=== PATIENT | female | born 1945 | race Caucasian/White ===

== ENCOUNTER → 2017-01-03 | Outpatient (CLI) | payer MEDICARE, BC ==
--- NOTE | 2017-01-03 13:41 | BD ---
EXAMINATION TYPE: MG DEXA axial skeleton. DATE OF EXAM: 01/03/2017 11:17 AM COMPARISON: DEXA bone scan report September 07, 2009. CLINICAL HISTORY: post menopausal Height: 5'4 Weight: 180 FRAX RISK QUESTIONS: Alcohol (3 or more units per day): no Family History (Parent hip fracture): no Glucocorticoids (More than 3mos): no (Ex: prednisone, prednisolone, methylprednisolone, dexamethasone, and hydrocortisone). History of Fracture in Adulthood: no Secondary Osteoporosis: 1. Type 1 Diabetes: no 2. Hyperthyroidism: no 3. Menopause before 45: yes 4. Malnutrition: no 5. Chronic liver disease: no Rheumatoid Arthritis: no Current Tobacco Use: no RISK FACTORS HISTORY OF: Active: Postmenopausal woman: If Premenopausal, do you have irregular periods: MEDICATIONS: Additional Medications: blood pressure, cholesterol, Additional History: breast cancer 2016, estrogen devaughn, type 2 diabetes EXAM MEASUREMENTS: Bone mineral densitometry was performed using the [employer] System. Bone mineral density as measured about the Lumbar spine is: ----- L1-L4(G/cm2): 1.398 T Score Values are as follows: ----- L2: 1.7 ----- L3: 2.7 ----- L4: 2.2 ----- L1-L4:1.8 Bone mineral density has: Increased 8.0% since study of: 09/07/2009 Bone mineral density about the R hip (g/cm2): 1.090 Bone mineral density about the L hip (g/cm2): 0.999 T Score values are as follows: -----R Neck: 0.4 -----L Neck: -0.3 -----R Total: 1.3 -----L Total: 1.2 Bone mineral density has: Increased 2.8% since study of: 09/07/2009 IMPRESSION: Normal (Values between +1 and -1 indicate normal bone mass). Consider repeating this study in 5 year s or sooner if there is some new clinical indication. NOTE: T-SCORE=SD OF THE YOUNG ADULT MEAN.
== END | disposition home or self-care (01) ==
LOC: RADBDWWP 10:54
PROVIDERS: ATTEND Internal Medicine Hematology & Oncology
DX: C50.412 Malignant neoplasm of upper-outer quadrant of left female breast (principal); N95.1 Menopausal and female climacteric states; Z79.890 Hormone replacement therapy
CPT/HCPCS: 77080

== ENCOUNTER → 2017-02-06 | Outpatient (CLI) | payer MEDICARE, BC ==
--- NOTE | 2017-02-06 14:20 | MM ---
Reason for exam: additional evaluation requested from prior study. Last mammogram was performed 10 months ago. History: Patient is postmenopausal and has history of breast cancer at age 70. Malignant MG stereo VAD BX RT of the right breast, May 10, 2016. Physical Findings: Nurse did not find any significant physical abnormalities on exam. MG 3D Diag Mammo W/Cad JORDON Bilateral CC and MLO view(s) were taken. Prior study comparison: April 18, 2016, right breast MG work up mamm w CAD RT. There are scattered fibroglandular densities. Finding: Architectural distortion in the upper outer quadrant of the right breast, consistent with known excisional biopsy. There is no discrete abnormality. These results were verbally communicated with the patient and result sheet given to the patient on 02/06/17. ASSESSMENT: Benign, BI-RAD 2 RECOMMENDATION: Follow-up diagnostic mammogram of both breasts in 1 year.
== END | disposition home or self-care (01) ==
LOC: RADMAMWWP 13:31
PROVIDERS: ATTEND Radiology Radiation Oncology
DX: D05.11 Intraductal carcinoma in situ of right breast (principal)
CPT/HCPCS: G0204; G0279

== ENCOUNTER → 2018-02-08 | Outpatient (CLI) | payer MEDICARE, BC ==
--- NOTE | 2018-02-08 12:25 | MM ---
Reason for exam: additional evaluation requested from prior study. Last mammogram was performed 1 year ago. History: Patient is postmenopausal and has history of breast cancer at age 70. Malignant MG stereo VAD BX RT of the right breast, May 10, 2016. Physical Findings: Nurse did not find any significant physical abnormalities on exam. MG 3D Diag Mammo W/Cad JORDON Bilateral CC and MLO view(s) were taken. Prior study comparison: February 06, 2017, bilateral MG 3d diag mammo w/cad JORDON. April 18, 2016, right breast MG work up mamm w CAD RT. The breast tissue is heterogeneously dense. This may lower the sensitivity of mammography. No suspicious calcifications are seen. Stable post operative changes in the right breast. No significant new findings when compared with previous films. These results were verbally communicated with the patient and result sheet given to the patient on 02/08/18. ASSESSMENT: Benign, BI-RAD 2 RECOMMENDATION: Follow-up diagnostic mammogram of both breasts in 1 year.
== END | disposition home or self-care (01) ==
LOC: RADMAMWWP 10:07
PROVIDERS: ATTEND Internal Medicine Hematology & Oncology
DX: Z08 Encounter for follow-up examination after completed treatment for malignant neoplasm (principal); Z85.3 Personal history of malignant neoplasm of breast
CPT/HCPCS: 77066; G0279; 77062

== ENCOUNTER 2018-08-06 11:49 | Emergency (ER) | payer MEDICARE, BC ==
[2018-08-06 12:02] VITALS: RESP 18; TEMP 98
[2018-08-06] MEDS ORDERED: LABETALOL SYRINGE 5 MG/ML IVP STA ×2 (12:06→14:34)
[2018-08-06] MEDS ORDERED: hydrALAZINE HCL 20 MG/ML 1 ML VIAL IVP STA (12:55)
[2018-08-06 13:03] LABS: Basophils % (A) 1 %; Eosinophils # (A) 0.1 k/uL (0-0.7); Eosinophils % (A) 2 %; Lymphocytes # (A) 1.3 k/uL (1.0-4.8); Lymphocytes % (A) 24 %; MCH 29.5 pg (25.0-35.0); MCHC 34.2 g/dL (31.0-37.0); MCV 86.5 fL (80.0-100.0); Monocytes # (A) 0.3 k/uL (0-1.0); Monocytes % (A) 6 %; Neutrophils # (A) 3.5 k/uL (1.3-7.7); Neutrophils % (A) 66 %; Platelet Count 124 k/uL (150-450); RDW 13.9 % (11.5-15.5); WBC 5.4 k/uL (3.8-10.6)
[2018-08-06 13:14] LABS: Magnesium 1.5 mg/dL (1.6-2.3); Potassium 4.3 mmol/L (3.5-5.1); Total Bilirubin 0.7 mg/dL (0.2-1.3); Total Protein 7.1 g/dL (6.3-8.2)
--- NOTE | 2018-08-06 13:23 | ED ---
Recheck HPI - General Chief Complaint: Recheck/Abnormal Lab/Rx Stated Complaint: hypertension Time Seen by Provider: 08/06/18 12:06 Source: patient, RN notes reviewed, old records reviewed Mode of arrival: ambulatory Limitations: no limitations - History of Present Illness Initial Comments: This is a 72-year-old female to the ER for evaluation presents today for evaluation of elevated blood pressure. Denies complaints no headache chest pain shortness breath or abdominal pain. Patient's blood pressures running high for weeks MD Complaint: other (Blood pressure rechecked) -: month(s) Returns Today for: Called Because of Abnormal Lab/Test Symptoms Since Prior Visit: no new symptoms Context: planned re-check Associated Symptoms: none - Related Data Home Medications Medication Instructions Recorded Confirmed Lovastatin [Mevacor] 20 mg PO HS 07/07/14 08/06/18 Metoprolol Tartrate [Lopressor] 150 mg PO BID 07/07/14 08/06/18 metFORMIN HCL [Glucophage Xr] 2,250 mg PO AC-SUPPER 07/07/14 08/06/18 Ibuprofen 800 mg PO TID 08/06/18 08/06/18 Letrozole [Femara] 2.5 mg PO DAILY 08/06/18 08/06/18 Lisinopril 40 mg PO DAILY 08/06/18 08/06/18 Previous Rx's Medication Instructions Recorded hydrALAZINE HCL [Apresoline] 10 mg PO QID #16 tablet 08/06/18 hydrALAZINE HCL [Apresoline] 25 mg PO QID #28 tab 08/06/18 Allergies Allergy/AdvReac Type Severity Reaction Status Date / Time No Known Allergies Allergy Verified 08/06/18 12:18 Review of Systems ROS Statement: Those systems with pertinent positive or pertinent negative responses have been documented in the HPI. ROS Other: All systems not noted in ROS Statement are negative. Past Medical History Past Medical History: Diabetes Mellitus, GERD/Reflux, Hyperlipidemia, Hypertension History of Any Multi-Drug Resistant Organisms: None Reported Past Surgical History: No Surgical Hx Reported Past Anesthesia/Blood Transfusion Reactions: No Reported Reaction Past Psychological History: No Psychological Hx Reported Smoking Status: Former smoker Past Alcohol Use History: None Reported Past Drug Use History: None Reported General Exam Limitations: no limitations General appearance: alert, in no apparent distress Head exam: Present: atraumatic, normocephalic, normal inspection Eye exam: Present: normal appearance, PERRL, EOMI. Absent: scleral icterus, conjunctival injection, periorbital swelling ENT exam: Present: normal exam, mucous membranes moist Neck exam: Present: normal inspection. Absent: tenderness, meningismus, lymphadenopathy Respiratory exam: Present: normal lung sounds bilaterally. Absent: respiratory distress, wheezes, rales, rhonchi, stridor Cardiovascular Exam: Present: regular rate, normal rhythm, normal heart sounds. Absent: systolic murmur, diastolic murmur, rubs, gallop, clicks GI/Abdominal exam: Present: soft, normal bowel sounds. Absent: distended, tenderness, guarding, rebound, rigid Extremities exam: Present: normal inspection, full ROM, normal capillary refill. Absent: tenderness, pedal edema, joint swelling, calf tenderness Back exam: Present: normal inspection Neurological exam: Present: alert, oriented X3, CN II-XII intact Psychiatric exam: Present: normal affect, normal mood Skin exam: Present: warm, dry, intact, normal color. Absent: rash Course Vital Signs 08/06/18 08/06/18 08/06/18 11:58 12:54 13:35 Temperature 98 F Pulse Rate 71 66 77 Respiratory 18 18 18 Rate Blood Pressure 216/102 219/112 207/107 O2 Sat by Pulse 97 100 Oximetry 08/06/18 08/06/18 08/06/18 14:37 15:12 15:49 Temperature 98 F Pulse Rate 74 80 80 Respiratory 18 18 18 Rate Blood Pressure 206/104 179/93 149/82 O2 Sat by Pulse 96 96 96 Oximetry Medical Decision Making - Medical Decision Making 72 female the ER for evaluation of elevated blood pressure blood pressure improved here in the ER, patient asymptomatic can be discharged home - Lab Data Result diagrams: 08/06/18 12:35 08/06/18 12:35 Lab Results 08/06/18 08/06/18 08/06/18 Range/Units 12:35 12:35 12:35 WBC 5.4 (3.8-10.6) k/uL RBC 4.40 (3.80-5.40) m/uL Hgb 13.0 (11.4-16.0) gm/dL Hct 38.0 (34.0-46.0) % MCV 86.5 (80.0-100.0) fL MCH 29.5 (25.0-35.0) pg MCHC 34.2 (31.0-37.0) g/dL RDW 13.9 (11.5-15.5) % Plt Count 124 L (150-450) k/uL Neutrophils % 66 % Lymphocytes % 24 % Monocytes % 6 % Eosinophils % 2 % Basophils % 1 % Neutrophils # 3.5 (1.3-7.7) k/uL Lymphocytes # 1.3 (1.0-4.8) k/uL Monocytes # 0.3 (0-1.0) k/uL Eosinophils # 0.1 (0-0.7) k/uL Basophils # 0.0 (0-0.2) k/uL Sodium 139 (137-145) mmol/L Potassium 4.3 (3.5-5.1) mmol/L Chloride 107 (98-107) mmol/L Carbon Dioxide 25 (22-30) mmol/L Anion Gap 7 mmol/L BUN 23 H (7-17) mg/dL Creatinine 1.04 (0.52-1.04) mg/dL Est GFR (CKD-EPI)AfAm 61 (>60 ml/min/1.73 sqM) Est GFR (CKD-EPI)NonAf 53 (>60 ml/min/1.73 sqM) Glucose 122 H (74-99) mg/dL Calcium 10.0 (8.4-10.2) mg/dL Phosphorus 4.0 (2.5-4.5) mg/dL Magnesium 1.5 L (1.6-2.3) mg/dL Total Bilirubin 0.7 (0.2-1.3) mg/dL AST 29 (14-36) U/L ALT 35 (9-52) U/L Alkaline Phosphatase 63 (38-126) U/L Total Creatine Kinase 74 (30-135) U/L CK-MB (CK-2) 1.9 (0.0-2.4) ng/mL CK-MB (CK-2) Rel Index 2.6 Troponin I <0.012 (0.000-0.034) ng/mL Total Protein 7.1 (6.3-8.2) g/dL Albumin 4.0 (3.5-5.0) g/dL - EKG Data -: EKG Interpreted by Me (EKG shows NSR rate of 67 [place] 160 QRS 78 QTc 407) Disposition Clinical Impression: Hypertension, uncontrolled Disposition: HOME SELF-CARE Condition: Good Instructions: Hypertensive Crisis (ED), Hypertension (ED) Prescriptions: hydrALAZINE HCL [Apresoline] 25 mg PO QID #28 tab hydrALAZINE HCL [Apresoline] 10 mg PO QID #16 tablet Is patient prescribed a controlled substance at d/c from ED?: No Referrals: Ebonie Alexander MD [Primary Care Provider] - 1-2 days
[2018-08-06 13:24] LABS: Creatine Kinase 74 U/L (30-135)
[2018-08-06 13:36] LABS: Creatine Kinase MB 1.9 ng/mL (0.0-2.4); Troponin I <0.012 ng/mL (0.000-0.034)
[2018-08-06 15:13] VITALS: PULSE 80
[2018-08-06 15:50] VITALS: BP 149/82
== END 2018-08-06 15:39 | disposition home or self-care (01) ==
LOC: EC 11:49
DX: I10 Essential (primary) hypertension (principal); E11.9 Type 2 diabetes mellitus without complications; E78.5 Hyperlipidemia, unspecified; Z87.891 Personal history of nicotine dependence; Z79.84 Long term (current) use of oral hypoglycemic drugs; Z79.1 Long term (current) use of non-steroidal anti-inflammatories (NSAID); Z79.811 Long term (current) use of aromatase inhibitors; Z79.899 Other long term (current) drug therapy
CPT/HCPCS: 36415; 93005; 80053; 82550; 82553; 83735; 84100; 84484; 85025; 99284; 96374; 96375; J0360

== ENCOUNTER → 2019-01-15 | Outpatient (CLI) | payer MEDICARE, BC ==
--- NOTE | 2019-01-15 15:34 | BD ---
EXAMINATION TYPE: Axial Bone Density DATE OF EXAM: 01/15/2019 COMPARISON: 2017 CLINICAL HISTORY: post menopausal Height: 5'4 1/2 Weight: 173 FRAX RISK QUESTIONS: Secondary Osteoporosis: 3. Menopause before 45: y RISK FACTORS HISTORY OF: Family History of Osteoporosis: y Postmenopausal woman: y MEDICATIONS: Additional Medications: high blood pressure, type 2 diabetes, pain Additional History: breast cancer, radiation EXAM MEASUREMENTS: Bone mineral densitometry was performed using the [employer] System. Bone mineral density as measured about the Lumbar spine is: ----- L1-L4(G/cm2): 1.367 T Score Values are as follows: ----- L2: 0.7 ----- L3: 2.1 ----- L4: 2.4 ----- L1-L4:1.6 Bone mineral density has: Decreased -3.7% since study of: 01/03/2017 Bone mineral density about the R hip (g/cm2): 0.988 Bone mineral density about the L hip (g/cm2): 0.975 T Score values are as follows: -----R Neck: -0.4 -----L Neck: -0.5 -----R Total: 0.3 -----L Total: 0.7 Bone mineral density has: Decreased -8.5% since study of: 01/03/2017 IMPRESSION: Normal (Values between +1 and -1 indicate normal bone mass). Consider repeating this study in 5 year s or sooner if there is some new clinical indication. NOTE: T-SCORE=SD OF THE YOUNG ADULT MEAN.
== END | disposition home or self-care (01) ==
LOC: RADBDWWP 14:43
PROVIDERS: ATTEND Internal Medicine Hematology & Oncology
DX: C50.411 Malignant neoplasm of upper-outer quadrant of right female breast (principal); N95.1 Menopausal and female climacteric states; Z79.890 Hormone replacement therapy
CPT/HCPCS: 77080

== ENCOUNTER → 2019-02-12 | Outpatient (CLI) | payer MEDICARE, BC ==
--- NOTE | 2019-02-12 14:04 | MM ---
Reason for exam: additional evaluation requested from prior study. Last mammogram was performed 1 year ago. History: Patient is postmenopausal and has history of breast cancer at age 70. Malignant MG stereo VAD BX RT of the right breast, May 10, 2016. Lumpectomy of the right breast. Radiation therapy of the right breast. Taking antineoplastic beginning at age 70. Physical Findings: Nurse did not find any significant physical abnormalities on exam. MG 3D Diag Mammo W/Cad JORDON Bilateral CC and MLO view(s) were taken. Prior study comparison: February 08, 2018, bilateral MG 3d diag mammo w/cad JORDON. February 06, 2017, bilateral MG 3d diag mammo w/cad JORDON. The breast tissue is heterogeneously dense. This may lower the sensitivity of mammography. Benign left upper outer quadrant skin lesions on physical exam (skin tags). Post therapy change on the right. These results were verbally communicated with the patient and result sheet given to the patient on 02/12/19. ASSESSMENT: Benign, BI-RAD 2 RECOMMENDATION: Follow-up diagnostic mammogram of both breasts in 1 year.
== END | disposition home or self-care (01) ==
LOC: RADMAMWWP 12:38
PROVIDERS: ATTEND Internal Medicine Hematology & Oncology
DX: Z08 Encounter for follow-up examination after completed treatment for malignant neoplasm (principal); Z85.3 Personal history of malignant neoplasm of breast
CPT/HCPCS: 77066; G0279; 77062

== ENCOUNTER → 2020-06-17 | Outpatient (CLI) | payer MEDICARE, BC ==
--- NOTE | 2020-06-17 15:01 | XR ---
EXAMINATION TYPE: XR chest 2V DATE OF EXAM: 06/17/2020 CLINICAL HISTORY: Preoperative back surgery. Z01.818. TECHNIQUE: Frontal and lateral views of the chest are obtained. COMPARISON: None FINDINGS: Surgical clips of the right breast. The cardiomediastinal silhouette is within normal limi ts for size. Pulmonary vasculature is normal. There is no focal air space opacity, pleural effusion, or pneumothorax seen. Degenerative changes of the spine. IMPRESSION: No acute cardiopulmonary process.
[2020-06-17 16:18] LABS: Appearance,Urine Clear (Clear); Bilirubin,Urine Negative (Negative); Blood,Urine Negative (Negative); Color,Urine Yellow; Glucose,Urine (UA) Negative (Negative); Ketones,Urine Negative (Negative); Leukocyte Esterase,Urine Small (Negative); Mucus,Urine Rare /hpf; Nitrite,Urine Negative (Negative); PH, Urine 5.5 (5.0-8.0); Protein,Urine Trace (Negative); RBC,Urine 1 /hpf (0-5); Specific Gravity,Urine 1.025 (1.001-1.035); Squamous Epithelial Cell,Urine <1 /hpf (0-4); Urobilinogen,Urine <2.0 mg/dL (<2.0); WBC,Urine <1 /hpf (0-5)
== END | disposition home or self-care (01) ==
LOC: LABPAT 14:26
PROVIDERS: ATTEND Orthopaedic Surgery Orthopaedic Surgery of the Spine
DX: Z01.818 Encounter for other preprocedural examination (principal); Z01.812 Encounter for preprocedural laboratory examination; M43.10 Spondylolisthesis, site unspecified
CPT/HCPCS: 36415; 71046; 81001; 87070; 93005

== ENCOUNTER → 2020-06-22 | Outpatient (CLI) | payer MEDICARE, BC ==
[2020-06-22 13:33] LABS: Basophils % (A) 1 %; Eosinophils # (A) 0.1 k/uL (0-0.7); Eosinophils % (A) 2 %; HCT 41.8 % (34.0-46.0); HGB 13.8 gm/dL (11.4-16.0); Lymphocytes # (A) 1.6 k/uL (1.0-4.8); Lymphocytes % (A) 24 %; MCH 30.2 pg (25.0-35.0); MCHC 33.2 g/dL (31.0-37.0); Mean Platelet Volume 8.7; Monocytes # (A) 0.5 k/uL (0-1.0); Monocytes % (A) 7 %; Neutrophils # (A) 4.4 k/uL (1.3-7.7); Neutrophils % (A) 65 %; Partial Thromboplastin Time 23.6 sec (22.0-30.0); Platelet Count 152 k/uL (150-450); Prothrombin Time 10.1 sec (9.0-12.0); RBC 4.59 m/uL (3.80-5.40); RDW 13.4 % (11.5-15.5); WBC 6.7 k/uL (3.8-10.6)
[2020-06-22 13:51] LABS: Calcium 10.6 mg/dL (8.4-10.2); Potassium 4.8 mmol/L (3.5-5.1)
== END | disposition home or self-care (01) ==
LOC: LABPAT 12:49
PROVIDERS: ATTEND Orthopaedic Surgery Orthopaedic Surgery of the Spine
DX: Z01.818 Encounter for other preprocedural examination (principal); M43.10 Spondylolisthesis, site unspecified; Z79.01 Long term (current) use of anticoagulants
CPT/HCPCS: 36415; 80048; 85025; 85610; 85730; 86850; 86900; 86901

== ENCOUNTER 2020-07-01 09:51 | Day surgery (SDC) | payer MEDICARE, BC ==
[2020-06-25 11:20] VITALS: BMI 27.8
[~2020-07-01 09:51] MED LIST: ceFAZolin 1,000 MG in SODIUM CHLORIDE 0.9% IRRIGATIO 1,000 ML IRRIGATION ONE; fentaNYL (PF) 50 MCG/ML 2 ML AMP IV PRN
[2020-07-01] MEDS ORDERED: ONDANSETRON 4 MG/2 ML VIAL ONE (10:35)
[2020-07-01 10:50] LABS: Glucose,Whole Blood 128 mg/dL (75-99)
[2020-07-01] MEDS: LACTATED RINGERS 1,000 ML IV SCH ×2 (10:50→22:17)
[2020-07-01] MEDS ORDERED: LIDOCAINE 1% (10MG/ML) FOR IV START INTRADERMA ONE (10:50)
[2020-07-01] MEDS: ONDANSETRON 4 MG/2 ML VIAL IVP PRN ×2 (10:51→15:27)
[2020-07-01] MEDS ORDERED: SUCCINYLCHOLINE CHLORIDE 100 MG/5 ML SYR IV ONE (11:32)
[2020-07-01] MEDS ORDERED: PROPOFOL 10 MG/ML 20 ML VIAL IV ONE (11:32)
[2020-07-01] MEDS ORDERED: ePHEDrine SULFATE/0.9% NACL/PF 50 MG/5 ML SYRINGE IV ONE (11:32)
[2020-07-01] MEDS ORDERED: HYDROmorphone (PF) 1 MG/ML ONE (11:32)
[2020-07-01] MEDS ORDERED: fentaNYL (PF) 50 MCG/ML 2 ML AMP ONE (11:32)
[2020-07-01] MEDS ORDERED: ROCURONIUM 10 MG/ML (10 ML VIAL) IV ONE (11:32)
[2020-07-01] MEDS ORDERED: LIDOCAINE 1% INJ 10MG/ML (20 ML MDV) ONE (11:32)
[2020-07-01] MEDS ORDERED: MIDAZOLAM 2 MG/2 ML VIAL ONE (11:32)
[2020-07-01] MEDS ORDERED: GLYCOPYRROLATE 0.2 MG/ML 2 ML VIAL ONE (11:32)
[2020-07-01] MEDS ORDERED: THROMBIN (BOVINE) 5,000 UNIT VIAL TOPICAL ONE (12:34)
[2020-07-01] MEDS ORDERED: BUPIVACAINE (PF) 0.25% 30 ML VIAL SQ ONE (12:34)
[2020-07-01] MEDS ORDERED: GELATIN SPONGE,ABSORB (LARGE) 1 EACH SPONGE TOPICAL ONE (12:34)
[2020-07-01] MEDS ORDERED: LIDOCAINE 1%-EPI 1:100,000 20 ML VIAL SQ ONE (12:35)
[2020-07-01] MEDS ORDERED: LACTATED RINGERS 1,000 ML IV ONE (12:59)
[2020-07-01] MEDS ORDERED: BENZOCAINE/MENTHOL LOZENG 1 EACH LOZENGE MUCOUS MEM PRN (14:23)
[2020-07-01] MEDS ORDERED: MAGNESIUM HYDROXIDE 2,400 MG/10 ML CUP PO PRN (14:23)
[2020-07-01] MEDS ORDERED: HYDROcodone/APAP 5-325MG 1 EACH TAB PO PRN (14:23)
[2020-07-01] MEDS ORDERED: ACETAMINOPHEN TAB 325 MG TAB PO PRN (14:25)
[2020-07-01] MEDS ORDERED: ONDANSETRON 4 MG/2 ML VIAL IVP PRN (14:26)
--- NOTE | 2020-07-01 14:32 | P.OP ---
Date of Procedure: 07/01/20 Preoperative Diagnosis: Spondylolisthesis L4 5, spinal stenosis L4 5, lower extremity radiculopathy, lower extremity weakness, neurogenic claudication, low back pain, degenerative disc disease Postoperative Diagnosis: Same Anesthesia: GETA Pathology: none sent Condition: stable Disposition: PACU Description of Procedure: DESCRIPTION OF PROCEDURE(S): BRIEF OPERATIVE NOTE Preoperative Diagnosis: Spondylolisthesis L4 5, spinal stenosis L4 5, lower extremity radiculopathy, lower extremity weakness, neurogenic claudication, low back pain, degenerative disc disease Postoperative Diagnosis: Same Procedure: Laminectomy and decompression L4 [address] navigation aided Minimally invasive Posterior lateral decompression and fusion L4 5 Minimally invasive Transforaminal lumbar interbody fusion for a 360 fusion L4 5 Discectomy for decompression L4 5 Placement of interbody graft L4 5 Use of computer navigation for fusion Local autogenous bone grafting Aspiration of bone marrow from the pedicle of L4 on the right Use of bone graft extenders Surgeon: Dr. Murrieta Gluing Machine Operator Automatic: Joaquín MOODY who is present throughout the entire the case persistence during positioning, dissection, exposure, visualization, and all crucial elements of the case as well as closure. Anesthesia: General anesthesia per Dr. Dr. Mccallum Estimated blood loss: Approximately 150 mL Complications: None apparent Components implanted: K2M minimally invasive [place] pedicle screw system withscrews measuring 6.5 mm in diameter to rods one [place] interbody cage with 10 mL of osteo amp bio4 bone graft substitute and 30 mL of the BX bone fibers to supplement the local autogenous bone graft and bone marrow aspirate Disposition: To recovery room in good stable condition. OPERATIVE INDICATIONS The patient has had severe issues at their lower extremity in her lower back over the past several years with significant worsening over the past several months. Over the past few months the patient had pain at her back and her rig ht lower extremity. She is having severe radicular symptoms at her right lower extremity with weakness. She is having significant pain in her back. She is unable to obtain any comfort. We did aggressive conservative treatment with medications therapy and interventional pain management however she was not having any relief. She also showed evidence of a listhesis with some dynamic instability. The patient has been through conservative treatment. We discussed various treatment options including surgery, and the patient wishes to proceed with surgery We discussed the risk, patient's alternatives and benefits of surgery including but not limited to, risk of bleeding risk of infection, risk of need for further surgery, risk of decreased, loss of motion, muscle function, malunion nonunion, hardware failure, nerve damage, paralysis, heart attack, blindness and . She understood issues with the current pandemic and the possibility of exposure. OPERATIVE SUMMARY After discussing all the risks, patient alternatives and benefits at length, the patient elected to proceed with surgical intervention, signed informed consent, and presented for their procedure. The patient was seen and examined in the preoperative holding area and the surgical site was marked. The patient was given antibiotics and brought to the operating room. The patient was sedated and intubated by anesthesia in standard fashion. The patient was positioned on to the operating room table in a prone position on the appropriate frame which was well-padded and well molded. We were careful to pad any bony prominences and pressure points. We were careful to maintain the patient's cervical spine and good neutral alignment and position throughout. The patient was prepped and draped in a normal standard fashion. An appropriate timeout and keystone protocol performed. We were able to proceed with the surgery. The local wound area was infiltrated with local anesthetic. Over the right iliac crest I was able to make small stab incisions and establish a guidepin screw fixation to the iliac crest 2. I was able place the computer referencing device over the guidepins to establish an appropriate reference point for the Ziem CT navigation. We then were able to place patient in an appropriate drape and do a navigation spin for visualization and 3-D reconstruction of the lumbar spine. I was able utilize C-arm guidance and navigation to establish appropriate position over the pedicles bilaterally at the appropriate levels . With the appropriate levels confirmed was able to make small stab incisions over the appropriate pedicle sites bilaterally. Utilizing the computer navigation device I was able to establish bony landmarks at the right iliac crest for a bony reference point for the navigation device. I was able to establish a Jamshidi needle over the lateral aspect of the pedicle and advanced the trocar into the pedicle being careful not to breech superiorly inferiorly medially or laterally using computer navigation device. Position was confirmed regularly with AP and lateral images on C-arm and with the computer navigation device at L4 and L5 bilaterally. I was able to establish the trocar into the pedicle appropriately into the posterior aspect of the vertebral body bilaterally at the appropriate levels. This was done at each of the pedicle positions and each of the vertebrae. At the L4 vertebrae I was able to take approximately 25 mL of bone aspiration for use later in the case to supplement the allograft and autograft bone. I was able place the guidewire into the trocar and into the vertebral body appropriately under C-arm guidance. Dissection was taken down over the wire to the appropriate starting position for the screw placed. The appropriate length screw was chosen, threaded over the guidewire and screwed appropriately into the pedicle and vertebral body under C- arm guidance in excellent alignment and position with good bony purchase. This is done at each of the screw sites at the appropriate levels at L4 and 5 bilaterally. With the screws intact I extended the incision to connect the screw hole sites on the most symptomatic side on the right. I dissected down to establish access over the pars and lamina to the base of the spinous process. I was able to expose the facet joint. The capsule the facet was taken down and showed some facet arthrosis at the joint. I was able to use a combination of curettes and Kerrison rongeurs and a high-speed drill to take down the facet joint and do a facetectomy. I was able get excellent foraminal decompression and central decompression with undermining across midline to perform a laminectomy centrally and contralaterally. As able get good central decompression. The ligamentum flavum was taken down to further decompress centrally and at bilateral neural foramen. I was able to expose the disc space and visualize the traversing nerve root. Note was made of some disc protrusion and disc herniation that was abutting the traversing nerve root at the level causing further compression of the nerve root. I was able to establish a annulotomy at the appropriate level protecting soft tissue and neural structures. Note was made of some disc desiccation at the disc. I performed a complete discectomy with accommodation of curettes and rasps and scrapers. I was able get good endplate preparation at the disc space. I sized for the appropriate size interbody spacer protecting the soft tissue and neural structures. The wound was copiously irrigated and suctioned dry. There is no evidence of any dural tear or leak. I was able to pack the disc space with local autogenous bone graft as well as a small amount of bone graft which was also placed into the interbody cage itself. Protecting the soft tissue structures and neural structures I was able place the interbody cage in good alignment and good position with good fit and fill at the interbody space. Position was confirmed with C-arm guidance. Good hemostasis maintained. There is no evidence of any dural tear or leak. The wound was irrigated and suctioned dry. With the hardware intact, intraoperative C-arm imaging was again taken which showed good alignment and position of the hardware at the appropriate levels. We were then able to measure, contour and place the rods and appropriate hardware bilaterally. I was able to place capcrews, tighten them down, and torque them with the torque screwdriver appropriately. With this intact I was able to place the local autogenous bone graft with additional bone graft enhancer as necessary into the posterior lateral gutters over the decorticated transverse processes and facet joints on the contralateral side. The remainder of the bone graft was placed over the facet joint on the contralateral side after taking down the facet joint capsule. With the bone graft intact, a stable construct, and good decompression at the appropriate levels, we were able to proceed with closure. Good hemostasis was maintained. There is no evidence of dural tear or leak. The fascia was closed for a watertight closure. he subcuticular tissue was closed with absorbable suture. The wound was cleaned and dried and dressed with the appropriate dressing. The drapes were broken down. The patient was gently rolled back onto their hospital bed being careful to maintain their cervical spine and good neutral alignment and position. They were woken up by anesthesia, extubated, and brought to the recovery room in good stable condition. The patient will be admitted to the hospital for appropriate postoperative care, medical management and monitoring. We will continue to follow them closely about the postoperative course.
[2020-07-01 14:34] LABS: Glucose,Whole Blood 155 mg/dL (75-99)
--- NOTE | 2020-07-01 14:47 | FL ---
Fluoroscopy INDICATION: Pain FINDINGS: Fluoroscopy time: 15 seconds. Images obtained: 2. IMPRESSIONS: 1. Documentation of fluoroscopy.
[2020-07-01] MEDS: HYDROmorphone 0.5 MG/0.5 ML SYRINGE IVP PRN ×3 (14:56→18:06)
[2020-07-01] MEDS: SODIUM CHLORIDE 0.9% 1,000 ML IV SCH (15:53)
[2020-07-01] MEDS: metFORMIN 500 MG TAB PO SCH (18:06)
[2020-07-01 19:39] LABS: Glucose,Whole Blood 162 mg/dL (75-99)
[2020-07-01] MEDS: INSULIN ASPART (NovoLOG) 100 UNIT/ML VIAL SQ SCH (20:04)
[2020-07-01] MEDS: traMADol 50 MG TAB PO PRN (21:38)
[2020-07-02] MEDS: HYDROmorphone 0.5 MG/0.5 ML SYRINGE IVP PRN ×2 (01:26→06:12)
[2020-07-02] MEDS: traMADol 50 MG TAB PO PRN ×2 (04:12→16:15)
[2020-07-02] MEDS: SODIUM CHLORIDE 0.9% 1,000 ML IV SCH ×2 (04:13→22:29)
[2020-07-02 06:38] LABS: Basophils % (A) 0 %; Eosinophils % (A) 1 %; HCT 36.7 % (34.0-46.0); HGB 12.2 gm/dL (11.4-16.0); Lymphocytes # (A) 0.8 k/uL (1.0-4.8); Lymphocytes % (A) 9 %; MCH 30.5 pg (25.0-35.0); MCHC 33.1 g/dL (31.0-37.0); Mean Platelet Volume 8.9; Monocytes # (A) 0.5 k/uL (0-1.0); Monocytes % (A) 6 %; Neutrophils % (A) 83 %; Platelet Count 107 k/uL (150-450); RBC 3.99 m/uL (3.80-5.40); RDW 13.4 % (11.5-15.5); WBC 8.4 k/uL (3.8-10.6)
[2020-07-02] MEDS ORDERED: CYCLOBENZAPRINE 10 MG TAB PO PRN (08:00)
[2020-07-02 08:07] LABS: Glucose,Whole Blood 126 mg/dL (75-99)
--- NOTE | 2020-07-02 08:07 | P.PN ---
Progress Note - Text Progress Note Date: 07/02/20 Postoperative day #1 Patient is seen and examined today at bedside. The patient has some pain around the surgical site as expected. Pain is being controlled with medication. Her Logan has been discontinued. She is eager to start moving around. She says she had very little if any sleep overnight last night and would like to try a muscle relaxer.She denies any headaches. Physical Exam Afebrile with stable vital signs Abdomen is soft nontender. Chest has good excursion deep and space expiration The incision site is clean dry and intact. No erythema there is no purulence. Extremities have not had neurologic change from prior to surgery. Her calves and thighs are soft and nontender. She has able to lift her legs up off the bed independently. Calves and thighs were soft nontender without evidence of DVT. Assessment/Plan Postoperative day #1 status post minimally invasive decompression fusion L4 5 for her spondylolisthesis with spinal stenosis and lower extremity radiculopathy Patient is progressing as expected from the surgery. She would like to try a muscle relaxer to help her sleep and I think that could be helpful for her. She is hopeful to go home tomorrow, but she will need to be able to improve her mobilization to be able to go home We will continue to increase the patient's mobilization with therapy. We will continue pain control with oral or IV medications. We'll continue to follow patient closely.
[2020-07-02] MEDS: INSULIN ASPART (NovoLOG) 100 UNIT/ML VIAL SQ SCH ×4 (08:12→21:05)
[2020-07-02] MEDS: BISOPROLOL-HCTZ 2.5-6.25 MG 1 EACH TAB PO SCH (08:40)
[2020-07-02] MEDS: lisinopriL 20 MG TAB PO SCH (08:40)
[2020-07-02] MEDS: metFORMIN 500 MG TAB PO SCH ×2 (08:40→18:27)
[2020-07-02] MEDS: DILTIAZEM CD 240 MG CAP.ER.24H PO SCH (08:40)
[2020-07-02] MEDS: SENNOSIDES-DOCUSATE SODIUM 1 EACH TAB PO SCH (08:43)
[2020-07-02] MEDS ORDERED: LETROZOLE 2.5 MG TAB PO SCH (09:00)
[2020-07-02 09:29] LABS: African American GFR (CKD) 63.4 (60.0-200.0); Anion Gap 9.8 mmol/L (4.00-12.00); Calcium 8.9 mg/dL (8.7-10.3); Carbon Dioxide 26.2 mmol/L (21.6-31.8); Non-African American GFR(CKD) 54.7 (60.0-200.0); Potassium 3.7 mmol/L (3.5-5.5)
[2020-07-02] MEDS: HYDROcodone/APAP 5-325MG 1 EACH TAB PO PRN (10:47)
[2020-07-02 14:35] LABS: Glucose,Whole Blood 176 mg/dL (75-99)
[2020-07-02 15:01] LABS: Hemoglobin A1C 5.6 % (4.0-6.0)
[2020-07-02 16:45] LABS: Glucose,Whole Blood 158 mg/dL (75-99)
--- NOTE | 2020-07-02 18:02 | P.CONS ---
History of Present Illness - Reason for Consult Consult date: 07/02/20 - History of Present Illness Nelda Reich, he is a 74-year-old female patient of Dr. Alexander, who was admitted to [facility] by Dr. Murrieta, and underwent L4-L5 laminectomy and decompression patient was admitted to the medical floor post surgery medical consultation was requested for management while hospitalized. Patient has a known history of hypertension, hyperlipidemia, axr-vzwbjqd-yrxpnsqxa diabetes mellitus, and history of breast cancer status post lumpectomy and radiation therapy 3 years ago. At this time patient is alert and oriented 3 in no apparent distress she is complaining of back pain otherwise she denies any complaints there is no fever or chills no headache or dizziness no chest pain no shortness of breath no cough no nausea or vomiting no abdominal pain no diarrhea no blood in the stools no burning with urination no frequency or urgency no hematuria. Past Medical History Past Medical History: Cancer, Diabetes Mellitus, Hyperlipidemia, Hypertension, Musculoskeletal Disorder, Osteoarthritis (OA) Additional Past Medical History / Comment(s): stage 0 breast cancer 4 yrs. ago- had radiation, N/T right leg History of Any Multi-Drug Resistant Organisms: None Reported Past Surgical History: Breast Surgery Additional Past Surgical History / Comment(s): colonoscopy, breast bx. Past Anesthesia/Blood Transfusion Reactions: No Reported Reaction Past Psychological History: No Psychological Hx Reported Smoking Status: Former smoker Past Alcohol Use History: None Reported Additional Past Alcohol Use History / Comment(s): quit smoking 25 yrs. ago, smoked from age of 11 to 48, 1ppd Past Drug Use History: None Reported - Past Family History Daughter(s) Family Medical History: Cancer Additional Family Medical History / Comment(s): colon Medications and Allergies Home Medications Medication Instructions Recorded Confirmed Type metFORMIN HCL [Glucophage Xr] 2,250 mg PO AC-SUPPER 07/07/14 07/01/20 History Ibuprofen 800 mg PO TID PRN 08/06/18 07/01/20 History Letrozole [Femara] 2.5 mg PO DAILY 08/06/18 07/01/20 History lisinopriL [Lisinopril] 40 mg PO DAILY 08/06/18 07/01/20 History Acetaminophen [Tylenol Arthritis] 650 mg PO Q8H PRN 06/25/20 07/01/20 History Bisoprolol-Hctz 2.5-6.25 mg [Ziac 1 tab PO DAILY 06/25/20 07/01/20 History 2.5-6.25 MG] Diltiazem HCl [Cartia Xt] 480 mg PO DAILY 06/25/20 07/01/20 History traMADol HCl [Ultram] 50 mg PO Q6HR PRN 06/25/20 07/01/20 History HYDROcodone/APAP 5-325MG [[place] 1 tab PO Q6HR PRN 3 Days #28 tab 07/02/20 Rx 5-325] Allergies Allergy/AdvReac Type Severity Reaction Status Date / Time No Known Allergies Allergy Verified 07/01/20 10:29 Physical Exam Vitals: Vital Signs Temp Pulse Resp BP Pulse Ox 07/02/20 15:00 98.8 F 61 122/68 93 L 07/02/20 07:40 55 L 16 07/02/20 07:00 98.5 F 55 L 16 125/61 91 L 07/02/20 04:12 16 07/02/20 01:00 98.3 F 79 16 169/76 95 07/02/20 00:05 16 07/01/20 20:04 16 07/01/20 19:00 97.9 F 71 18 163/73 92 L 07/01/20 17:42 148/80 Intake and Output 07/02/20 07/02/20 07/02/20 06:59 14:59 22:59 Output Total 1500 650 Balance -1500 -650 Output: Urine 1500 650 Other: Voiding Method Indwelling Catheter Bedside Commode In general patient is alert and oriented 3 in no apparent distress HEENT head normocephalic and atraumatic Neck is supple no JVD no goiter no lymphadenopathy Chest exam reveals a few scattered rhonchi no wheezing Cardiac exam reveals regular heart sounds no gallops no murmurs Abdomen is soft nontender no organomegaly was normal bowel sounds Extremity exam reveals no edema no cyanosis or clubbing Neurological examination reveals no gross focal deficit Results CBC & Chem 7: 07/02/20 06:17 07/02/20 06:17 Labs: Abnormal Lab Results - Last 24 Hours (Table) 07/01/20 07/02/20 07/02/20 Range/Units 19:37 06:17 06:17 Plt Count 107 L (150-450) k/uL Lymphocytes # 0.8 L (1.0-4.8) k/uL Est GFR (CKD-EPI)NonAf 54.7 L (60.0-200.0) Glucose 124 H (70-110) mg/dL POC Glucose (mg/dL) 162 H (75-99) mg/dL 07/02/20 07/02/20 07/02/20 Range/Units 08:06 14:32 16:44 Plt Count (150-450) k/uL Lymphocytes # (1.0-4.8) k/uL Est GFR (CKD-EPI)NonAf (60.0-200.0) Glucose (70-110) mg/dL POC Glucose (mg/dL) 126 H 176 H 158 H (75-99) mg/dL Assessment and Plan Plan: 1. Status post L4-5 laminectomy with decompression 2. Underlying history of hypertension 3. Underlying history of hyperlipidemia 4. Underlying history of peb-akioyxe-wovwqiqcj diabetes mellitus 5. History of breast cancer status post lumpectomy and radiation therapy 3 years ago For DVT prophylaxis SCD stockings For GI prophylaxis proton X Will follow during this admission
[2020-07-02] MEDS: PANTOPRAZOLE 40 MG TABLET PO SCH (18:27)
[2020-07-02] MEDS: HYDROmorphone 1 MG/ML 1 ML SYRINGE IVP PRN ×2 (19:32→23:29)
[2020-07-02 20:17] LABS: Glucose,Whole Blood 129 mg/dL (75-99)
[2020-07-02] MEDS: LACTATED RINGERS 1,000 ML IV SCH (22:30)
[2020-07-03 02:05] VITALS: RESP 16
[2020-07-03] MEDS: HYDROcodone/APAP 5-325MG 1 EACH TAB PO PRN ×2 (05:08→10:11)
[2020-07-03 06:53] LABS: Glucose,Whole Blood 132 mg/dL (75-99)
[2020-07-03] MEDS: PANTOPRAZOLE 40 MG TABLET PO SCH (07:57)
[2020-07-03] MEDS: INSULIN ASPART (NovoLOG) 100 UNIT/ML VIAL SQ SCH (08:01)
[2020-07-03] MEDS: metFORMIN 500 MG TAB PO SCH (08:01)
[2020-07-03 08:24] VITALS: BP 135/67; PULSE 88; TEMP 97.2
--- NOTE | 2020-07-03 08:55 | P.DS ---
Providers Date of admission: 07/01/2020 Expected date of discharge: 07/03/20 Attending physician: Clemente Murrieta Consults: 07/01/20 14:23 Consult Physician Routine Consulting Provider: Calvin Lang Consult Reason/Comments: Medical management Do you want consulting provider notified?: Yes Primary care physician: Ebonie Alexander - Discharge Diagnosis(es) (1) Spondylolisthesis at L4-L5 level Current Visit: Yes Status: Acute (2) Spinal stenosis, lumbar region with neurogenic claudication Current Visit: Yes Status: Acute (3) Low back pain Current Visit: Yes Status: Acute (4) Radiculopathy with lower extremity symptoms Current Visit: Yes Status: Acute (5) Lumbar facet arthropathy Current Visit: Yes Status: Acute (6) Hypertension Current Visit: Yes Status: Acute (7) Diabetes mellitus Current Visit: Yes Status: Acute (8) Status post lumbar spinal fusion Current Visit: Yes Status: Acute Hospital Course: This is a pleasant 74-year-old female who presented with L4-5 spondylolisthesis, degenerative disc disease, and spinal canal stenosis with neurogenic claudication, low back pain with lower extremity radiculopathy and lower extremity weakness who failed outpatient conservative therapy. She was admitted for an L4-5 minimally invasive posterior lateral decompression and fusion with transforaminal lumbar interbody fusion. The patient tolerated the procedure well and did well postoperatively. She feels she has made significant improvement over the past 2 days. She has been able to ambulate to the restroom. She is voiding without difficulty. She has been able to pass gas but has not had a bowel movement. She is not experiencing any abdominal pain. She's not currently complaining of any lower extremity weakness or radiculopathy bilaterally. Her low back pain has been adequately controlled with oral [place] and muscle relaxer. She feels she is ready for discharge today. Condition on day of discharge stable. Patient will be discharged home. Patient was cleared preoperatively for surgery by Dr. Lang. Patient currently denies any nausea, vomiting, fever, or chills. Patient is eating and voiding freely without difficulty. Patient may shower Optifoam dressing intact. Patient may remove Optifoam dressing in 3 days and shower without a dressing at that time. Patient should refrain from driving until at least after their first follow-up appointment in the office. Patient should avoid excessive bending, lifting, and twisting; no lifting greater than 10 pounds. Patient has a walker at home she may use to aid in ambulation as needed. He prescription is written and provided to case management to obtain a shower bench and an above toilet seat riser which she may use as needed. Patient may resume other previously prescribed home medications while discontinuing previously prescribed Ultram. She should avoid anti-inflammatory medications over the next 6 weeks postoperatively. Patient's other medical diagnoses include hypertension and diabetes mellitus. MAPS has been reviewed. An "Opiod Start Talking" Form has been signed and placed in the patient's chart. A prescription has been written for [place] 5 mg she 25 mg 1 tab every 6 hours as needed for pain, dispensed #28. She is also given a prescription for baclofen 10 mg 1 tablet 3 times a day as needed for muscle spasm, dispensed #60. Physical Exam on day of discharge: Patient is awake, alert, and oriented 3 Vital signs stable Good chest excursion with deep inspiration and expiration Abdomen soft nontender No signs or symptoms of DVT; no calf pain Extensor hallucis longus, plantarflexion, and dorsiflexion positive sustained bilateral lower extremities She is able to move legs and apparently embedded without difficulty Dressings are dry and intact small area of dried blood over the left incision site; no erythema, purulence, or signs of infection Optiofoam dressing intact Procedures: L4-5 minimally invasive posterior lateral decompression and fusion with transforaminal lumbar interbody fusion Patient Condition at Discharge: Stable Plan - Discharge Summary Discharge Rx Participant: No New Discharge Prescriptions: New HYDROcodone/APAP 5-325MG [[place] 5-325] 1 tab PO Q6HR PRN 3 Days #28 tab PRN Reason: Pain Baclofen 10 mg PO TID PRN #60 tab PRN Reason: Spasms No Action metFORMIN HCL [Glucophage Xr] 2,250 mg PO AC-SUPPER lisinopriL [Lisinopril] 40 mg PO DAILY Letrozole [Femara] 2.5 mg PO DAILY Ibuprofen 800 mg PO TID PRN PRN Reason: Pain Diltiazem HCl [Cartia Xt] 480 mg PO DAILY Bisoprolol-Hctz 2.5-6.25 mg [Ziac 2.5-6.25 MG] 1 tab PO DAILY traMADol HCl [Ultram] 50 mg PO Q6HR PRN PRN Reason: Pain Acetaminophen [Tylenol Arthritis] 650 mg PO Q8H PRN PRN Reason: Pain Discharge Medication List metFORMIN HCL [Glucophage Xr] 2,250 mg PO AC-SUPPER 07/07/14 [History] Ibuprofen 800 mg PO TID PRN 08/06/18 [History] Letrozole [Femara] 2.5 mg PO DAILY 08/06/18 [History] lisinopriL [Lisinopril] 40 mg PO DAILY 08/06/18 [History] Acetaminophen [Tylenol Arthritis] 650 mg PO Q8H PRN 06/25/20 [History] Bisoprolol-Hctz 2.5-6.25 mg [Ziac 2.5-6.25 MG] 1 tab PO DAILY 06/25/20 [History] Diltiazem HCl [Cartia Xt] 480 mg PO DAILY 06/25/20 [History] traMADol HCl [Ultram] 50 mg PO Q6HR PRN 06/25/20 [History] HYDROcodone/APAP 5-325MG [[place] 5-325] 1 tab PO Q6HR PRN 3 Days #28 tab 07/02/20 [Rx] Baclofen 10 mg PO TID PRN #60 tab 07/03/20 [Rx] Follow up Appointment(s)/Referral(s): Clemente Murrieta DO [Doctor of Osteopathic Medicine] - 2 Weeks (Patient may follow-up with Joaquín Dumont PA-C or Dr. Branden Murrieta at [facility] in 2-3 weeks following discharge. ) Activity/Diet/Wound Care/Special Instructions: Keep site clean. May shower with waterproof Optifoam intact. Do not soak in a tub. After 72 hours postoperatively, patient may remove dressing and then may shower with area uncovered. May ambulate as tolerated. Avoid heavy or rigorous activity. Take medications as prescribed. No repetitive bending twisting or lifting. No overhead work. Discharge Disposition: HOME SELF-CARE
[2020-07-03] MEDS: lisinopriL 20 MG TAB PO SCH (10:10)
[2020-07-03] MEDS: DILTIAZEM CD 240 MG CAP.ER.24H PO SCH (10:10)
[2020-07-03] MEDS: SENNOSIDES-DOCUSATE SODIUM 1 EACH TAB PO SCH (10:11)
[2020-07-03] MEDS: BISOPROLOL-HCTZ 2.5-6.25 MG 1 EACH TAB PO SCH (10:16)
--- NOTE | 2020-07-03 10:46 | P.PN ---
Subjective Progress Note Date: 07/03/20 Nelda Reich, he is a 74-year-old female patient of Dr. Alexander, who was admitted to [facility] by Dr. Murrieta, and underwent L4-L5 laminectomy and decompression patient was admitted to the medical floor post surgery medical consultation was requested for management while hospitalized. Patient has a known history of hypertension, hyperlipidemia, jex-mlrecpz-wiqceziyk diabetes mellitus, and history of breast cancer status post lumpectomy and radiation therapy 3 years ago. At this time patient is alert and oriented 3 in no apparent distress she is complaining of back pain otherwise she denies any complaints there is no fever or chills no headache or dizziness no chest pain no shortness of breath no cough no nausea or vomiting no abdominal pain no diarrhea no blood in the stools no burning with urination no frequency or urgency no hematuria. On 07/03/2020 patient's alert and oriented 3. Patient is going to be discharged home per surgical services. Patient has been up ambulating. Patient did have temp of 99.1 at 1 AM Will order UA to rule out infection prior to discharge. Patient denies cough or shortness of breath. Patient denies any burning with urination patient denies nausea vomiting or diarrhea. Incentive spirometer encouraged. Patient has currently remained afebrile Objective - Vital Signs Vital signs: Vital Signs Temp 97.2 F L 07/03/20 08:23 Pulse 88 07/03/20 08:23 Resp 16 07/03/20 08:23 BP 135/67 07/03/20 08:23 Pulse Ox 98 07/03/20 08:23 Intake & Output 07/02/20 07/03/20 07/03/20 18:59 06:59 18:59 Intake Total 1000 Output Total 975 Balance 25 Intake: Intake, IV Titration 600 Amount Sodium Chloride 0.9% 1, 600 000 ml @ 75 mls/hr IV . [id number] [facility] Rx#:[id number] Oral 400 Output: Urine 975 Other: Voiding Method Bedside Commode Toilet Bedside Commode # Voids 3 - Exam In general patient is alert and oriented 3 in no apparent distress HEENT head normocephalic and atraumatic Neck is supple no JVD no goiter no lymphadenopathy Chest exam reveals a few scattered rhonchi no wheezing Cardiac exam reveals regular heart sounds no gallops no murmurs Abdomen is soft nontender no organomegaly was normal bowel sounds Extremity exam reveals no edema no cyanosis or clubbing Neurological examination reveals no gross focal deficit - Labs CBC & Chem 7: 07/02/20 06:17 07/02/20 06:17 Labs: Abnormal Lab Results - Last 24 Hours (Table) 07/02/20 07/02/20 07/02/20 Range/Units 14:32 16:44 20:16 POC Glucose (mg/dL) 176 H 158 H 129 H (75-99) mg/dL 07/03/20 Range/Units 06:52 POC Glucose (mg/dL) 132 H (75-99) mg/dL Assessment and Plan Plan: 1. Status post L4-5 laminectomy with decompression 2. Underlying history of hypertension 3. Underlying history of hyperlipidemia 4. Underlying history of jyd-srnurbg-pibesecch diabetes mellitus 5. History of breast cancer status post lumpectomy and radiation therapy 3 years ago 6. Low-grade temp 99.9. Will order UA to rule out infection. Patient denies any acute complaints. Incentive spirometer encouraged Patient to be discharged home today per surgical services For DVT prophylaxis SCD stockings For GI prophylaxis proton X Will follow during this admission
[2020-07-03 10:49] LABS: Appearance,Urine Clear (Clear); Bilirubin,Urine Negative (Negative); Blood,Urine Negative (Negative); Color,Urine Light Yellow; Glucose,Urine (UA) Negative (Negative); Ketones,Urine Negative (Negative); Leukocyte Esterase,Urine Moderate (Negative); Mucus,Urine Rare /hpf; Nitrite,Urine Negative (Negative); Protein,Urine Negative (Negative); RBC,Urine 4 /hpf (0-5); Specific Gravity,Urine 1.008 (1.001-1.035); Squamous Epithelial Cell,Urine <1 /hpf (0-4); Urobilinogen,Urine <2.0 mg/dL (<2.0); WBC,Urine 3 /hpf (0-5)
== END 2020-07-03 11:48 | disposition home or self-care (01) ==
LOC: OR 09:51 → 4SSUR 14:14 → OR 07-03 11:48
PROVIDERS: ATTEND Orthopaedic Surgery Orthopaedic Surgery of the Spine
DX: M51.16 Intervertebral disc disorders with radiculopathy, lumbar region (principal); M43.16 Spondylolisthesis, lumbar region; M48.062 Spinal stenosis, lumbar region with neurogenic claudication; I10 Essential (primary) hypertension; E78.5 Hyperlipidemia, unspecified; E11.9 Type 2 diabetes mellitus without complications; M19.90 Unspecified osteoarthritis, unspecified site; M16.11 Unilateral primary osteoarthritis, right hip; E66.3 Overweight; Z68.27 Body mass index [BMI] 27.0-27.9, adult; M47.26 Other spondylosis with radiculopathy, lumbar region; F40.240 Claustrophobia; Z85.3 Personal history of malignant neoplasm of breast; Z92.3 Personal history of irradiation; Z79.811 Long term (current) use of aromatase inhibitors; Z79.84 Long term (current) use of oral hypoglycemic drugs; Z79.899 Other long term (current) drug therapy; Z79.1 Long term (current) use of non-steroidal anti-inflammatories (NSAID); Z97.3 Presence of spectacles and contact lenses; Z88.8 Allergy status to other drugs, medicaments and biological substances; Z90.710 Acquired absence of both cervix and uterus; Z87.891 Personal history of nicotine dependence; Z98.890 Other specified postprocedural states; Z80.0 Family history of malignant neoplasm of digestive organs
CPT/HCPCS: 97116; 97161; 80048; 85025; 81001; 83036; 72100; 22633; 22853; 20939; 20930; 20936; C1713; J2250; J0690 ×3; J2405; J2001; J3010; J1170 ×4; J0330; J2704; 86850; 86900; 86901

== ENCOUNTER → 2021-03-17 | Outpatient (CLI) | payer MEDICARE, BC ==
--- NOTE | 2021-03-17 12:37 | MM ---
Reason for exam: additional evaluation requested from prior study. Last mammogram was performed 2 years and 1 month ago. History: Patient is postmenopausal and has history of breast cancer at age 70. Malignant MG stereo VAD BX RT of the right breast, May 10, 2016. Lumpectomy of the right breast. Radiation therapy of the right breast. Taking antineoplastic beginning at age 70. Physical Findings: Nurse did not find any significant physical abnormalities on exam. MG 3D Diag Mammo W/Cad JORDON Bilateral CC and MLO view(s) were taken. Prior study comparison: February 12, 2019, bilateral MG 3d diag mammo w/cad JORDON. February 08, 2018, bilateral MG 3d diag mammo w/cad JORDON. There are scattered fibroglandular densities. Right post operative changes. These results were verbally communicated with the patient and result sheet given to the patient on 03/17/21. ASSESSMENT: Benign, BI-RAD 2 RECOMMENDATION: Follow-up diagnostic mammogram of both breasts in 1 year. Manage on a clinical basis with regard to right pain, if focal, ultrasound recommended.
--- NOTE | 2021-03-18 07:31 | BD ---
EXAMINATION TYPE: Axial Bone Density DATE OF EXAM: 03/17/2021 COMPARISON: 01/15/2019 CLINICAL HISTORY: Height: 63.5 IN Weight: 166 LBS FRAX RISK QUESTIONS: Secondary Osteoporosis: 3. Menopause before 45: PARTIAL HYST AGE 29 RISK FACTORS HISTORY OF: Surgery to Spine: YES L SPINE 2019 Active: MODERATE Postmenopausal woman: PARTIAL HYST AGE 29 MEDICATIONS: Additional Medications: CALCIUM, VIT D, VIT C, VIT B, METFORMIN, HIGH BLOOD PRESSURE MEDS, FEMARA Additional History: BREAST CANCER WITH RADIATION EXAM MEASUREMENTS: Bone mineral densitometry was performed using the Angle System. L SPINE SURGERY 06/2020 Bone mineral density about the R hip (g/cm2): 0.984 Bone mineral density about the L hip (g/cm2): 0.945 T Score values are as follows: -----R Neck: -0.4 -----L Neck: -0.7 -----R Total: -0.5 -----L Total: 0.2 Bone mineral density has: Decreased -7.6% since study of: 01/15/2019 Bone mineral density about the L Wrist (g/cm2): 0.557 T Score values are as follows: -----Dist. R+U: -2.5 -----Prox. R+U: -0.7 -----Radius total: -1.9 Bone mineral density BASELINE IMPRESSION: Osteopenia. NOTE: T-SCORE=SD OF THE YOUNG ADULT MEAN.
== END | disposition home or self-care (01) ==
LOC: RADBDWWP 09:36
PROVIDERS: ATTEND Internal Medicine Hematology & Oncology
DX: M85.89 Other specified disorders of bone density and structure, multiple sites (principal); R92.8 Other abnormal and inconclusive findings on diagnostic imaging of breast; Z78.0 Asymptomatic menopausal state; Z85.3 Personal history of malignant neoplasm of breast
CPT/HCPCS: 77080; 77066; G0279; 77062

== ENCOUNTER 2021-05-07 18:00 | Emergency (ER) | payer OTHER, MEDICARE, BC ==
[2021-05-07 19:25] VITALS: RESP 18; TEMP 98.3
--- NOTE | 2021-05-07 21:44 | XR ---
EXAMINATION TYPE: XR lumbar spine 2 or 3V DATE OF EXAM: 05/07/2021 COMPARISON: NONE HISTORY: Back pain TECHNIQUE: 3 views FINDINGS: Lumbar vertebra have normal alignment. There is posterior fusion surgery at L4-5. There is disc prosthesis at L4-5. There is mild narrowing of L4-5 disc space. Abdominal aorta is atheromatous. I see no compression fracture. There is spurring of the endplates. Sacroiliac joints are intact. IMPRESSION: Previous surgery. No fracture seen.
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
[2021-05-07 23:05] VITALS: BP 184/101; PULSE 86
== END 2021-05-07 22:26 | disposition home or self-care (01) ==
LOC: EC 18:00
DX: M54.5 Low back pain (principal); E11.9 Type 2 diabetes mellitus without complications; I10 Essential (primary) hypertension; E78.5 Hyperlipidemia, unspecified; K21.9 Gastro-esophageal reflux disease without esophagitis; Z79.84 Long term (current) use of oral hypoglycemic drugs; Z79.1 Long term (current) use of non-steroidal anti-inflammatories (NSAID); Z79.899 Other long term (current) drug therapy; V43.62XA Car passenger injured in collision with other type car in traffic accident, initial encounter; Y92.481 Parking lot as the place of occurrence of the external cause
CPT/HCPCS: 72100; 99284

== ENCOUNTER → 2022-04-22 | Outpatient (CLI) | payer MEDICARE, BC ==
[2022-04-22 15:28] LABS: INR 0.9 (<1.2); Partial Thromboplastin Time 26.9 sec (22.0-30.0); Prothrombin Time 10.1 sec (9.0-12.0)
[2022-04-22 18:40] LABS: HCT 35.8 % (37.2-46.3); HGB 12.3 g/dL (12.0-15.0); MCHC 34.4 g/dL (32.0-37.0); MCV 87.3 fL (80.0-97.0); NRBC Per 100 WBC 0 /100 WBCS (0.0-0.0); Platelet Count 98 X 10*3/uL (140-440); RDW 13.2 % (11.5-14.5); WBC 3.91 X 10*3/uL (4.50-10.00)
[2022-04-22 19:47] LABS: African American GFR (CKD) 54.5 (60.0-200.0); Albumin 4.1 g/dL (3.8-4.9); Albumin/Globulin Ratio 1.68 (1.60-3.17); Anion Gap 11.1 mmol/L (10.00-18.00); BUN/Creat Ratio 19.11 Ratio (12.00-20.00); Blood Urea Nitrogen 21.4 mg/dL (9.0-27.0); Calcium 9.3 mg/dL (8.7-10.3); Carbon Dioxide 26.3 mmol/L (20.0-27.5); Globulin 2.5 g/dL (1.6-3.3); Potassium 4.4 mmol/L (3.5-5.5); Total Bilirubin 0.6 mg/dL (0.30-1.20); Total Protein 6.6 g/dL (6.2-8.2)
== END | disposition home or self-care (01) ==
LOC: LABPAT 14:04
PROVIDERS: ATTEND Orthopaedic Surgery
DX: Z01.812 Encounter for preprocedural laboratory examination (principal)
CPT/HCPCS: 80053; 85027; 85610; 85730; 87070; 93005

== ENCOUNTER 2022-04-23 18:05 | Emergency (ER) | payer MEDICARE, BC ==
[2022-04-23 18:11] VITALS: TEMP 98.2
[2022-04-23] MEDS ORDERED: SODIUM CHLORIDE 0.9% 1,000 ML IV STA (19:22)
--- NOTE | 2022-04-23 19:32 | ED ---
General Adult HPI - General Chief complaint: Urogenital Stated complaint: Blood in urine Time Seen by Provider: 04/23/22 19:10 Source: patient, RN notes reviewed, old records reviewed Mode of arrival: ambulatory Limitations: no limitations - History of Present Illness Initial comments: Patient is a 76-year-old female with past medical history remarkable for hypertension, type 2 diabetes who presents emergency Department complaining of fatigue for 1 week, as well as lack of appetite and decreased oral intake. Denies any nausea, vomiting, diarrhea. Denies any chest pain, shortness of breath. Does endorse a small nonproductive cough. Denies sore throat. Denies rhinorrhea. Does endorse darker urine over the last day or so. Denies any abdominal pain at all. Denies back pain. Does have right hip pain but is due for right hip replacement this week. Denies any fevers. No sick contacts. Was not vaccinated for Covid or flu. Presents for further evaluation at this time. Denies any lightheadedness, dizziness. Denies any blurry vision. Endorses primarily generalized fatigue.Symptoms have been ongoing for 7 days. - Related Data Home Medications Medication Instructions Recorded Confirmed metFORMIN HCL [Glucophage Xr] 2,250 mg PO AC-SUPPER 07/07/14 07/01/20 Ibuprofen 800 mg PO TID PRN 08/06/18 07/01/20 Letrozole [Femara] 2.5 mg PO DAILY 08/06/18 07/01/20 lisinopriL 40 mg PO DAILY 08/06/18 07/01/20 Acetaminophen [Tylenol Arthritis] 650 mg PO Q8H PRN 06/25/20 07/01/20 Bisoprolol-Hctz 2.5-6.25 mg [Ziac 1 tab PO DAILY 06/25/20 07/01/20 2.5-6.25 MG] dilTIAZem HCL [Cartia Xt] 480 mg PO DAILY 06/25/20 07/01/20 traMADol HCl [Ultram] 50 mg PO Q6HR PRN 06/25/20 07/01/20 Previous Rx's Medication Instructions Recorded HYDROcodone/APAP 5-325MG [[place] 1 tab PO Q6HR PRN 3 Days #28 tab 07/02/20 5-325] Baclofen 10 mg PO TID PRN #60 tab 07/03/20 cefUROXime axetiL [Ceftin] 500 mg PO BID 7 Days #14 tab 07/03/20 Allergies Allergy/AdvReac Type Severity Reaction Status Date / Time No Known Allergies Allergy Verified 04/23/22 18:11 Review of Systems ROS Statement: Those systems with pertinent positive or pertinent negative responses have been documented in the HPI. Review of Systems: CONST: Denies fever EYES: Denies blurry vision ENT: Denies nasal congestion C/V: Denies Chest pain RESP: Denies shortness of breath GI: Denies abdominal pain : Endorses hematuria concern SKIN: Denies rash. MSK: Denies joint pain. NEURO: Denies headache ROS Other: All systems not noted in ROS Statement are negative. Past Medical History Past Medical History: Diabetes Mellitus, GERD/Reflux, Hyperlipidemia, Hypertension History of Any Multi-Drug Resistant Organisms: None Reported Past Surgical History: No Surgical Hx Reported Additional Past Surgical History / Comment(s): back surgery jun 23 Past Anesthesia/Blood Transfusion Reactions: No Reported Reaction Past Psychological History: No Psychological Hx Reported Smoking Status: Never smoker Past Alcohol Use History: None Reported Past Drug Use History: None Reported General Exam - General Exam Comments Initial Comments: General: Appears in no acute distress. HEAD: Normal with no signs of head trauma. EYES: PERRLA, EOMI, conjunctiva normal, no discharge. ENT: Hearing grossly intact, normal oropharynx. Dry mucous membranes. RESPIRATORY: Clear breath sounds bilaterally. No wheezes, rales, or rhonchi. C/V: Tachycardic in triage which is resolved in the room.. S1 and S2 auscultated, no edema, peripheral pulses 2+ and intact throughout ABD: Abd is soft, nontender, nondistended EXT: Normal range of motion, no obvious deformity SKIN: No rashes or lesions observed on exposed skin. NEURO: Alert and oriented 4. No focal sensory strength deficits. Limitations: no limitations Course Vital Signs 04/23/22 04/23/22 18:09 19:48 Temperature 98.2 F Pulse Rate 112 H 97 Respiratory 20 16 Rate Blood Pressure 151/76 169/86 O2 Sat by Pulse 99 95 Oximetry Medical Decision Making - Medical Decision Making Based on the patient's presentation and physical exam, she presents for fatigue as well as dark urine. Primary concern is possible infectious etiology. We'll obtain abdominal laboratory studies, urine studies. Screening EKG and chest x- ray will also be obtained. Viral swabs also be obtained. She was in agreement this plan. Will be given IV fluids.Vital signs are within normal limits. EKG shows no signs of acute ischemia. Chest x-ray shows no acute cardiopulmonary process. Laboratory studies are remarkable for a leukopenia of 3.5. Urinalysis shows trace ketones but no blood. Covid is positive. Flu is negative. On reevaluation after the patient. I explained to her that she is outside of the window for Paxil the treatment. We do not have monoclonal antibodies to provide her. Vital signs are within normal limits. She is not hypoxic. No respiratory distress per chest x-ray unremarkable. I discussed with her hydration. Discussed obtaining pulse oximetry to monitor her oxygen levels. Patient will remain quarantine until today symptom-free. She lives with her who will also follow quarantine. There were no agreement this plan. I answered all questions that she had. I instructed the patient to follow up with their PCP in the next 1-3 days. I explained that the patient should return to the emergency department if they experience any worsening symptoms. Strict return precautions were discussed with the patient. The patient expressed understanding of these instructions. I answered all questions that the patient had. The patient was discharged home in good condition with their prescriptions and follow up information. - Lab Data Result diagrams: 04/23/22 19:47 04/23/22 19:47 Lab Results 04/23/22 04/23/22 04/23/22 Range/Units 19:47 19:47 19:47 WBC 3.5 L (3.8-10.6) k/uL RBC 4.23 (3.80-5.40) m/uL Hgb 13.3 (11.4-16.0) gm/dL Hct 37.2 (34.0-46.0) % MCV 88.0 (80.0-100.0) fL MCH 31.4 (25.0-35.0) pg MCHC 35.6 (31.0-37.0) g/dL RDW 13.7 (11.5-15.5) % Plt Count 101 L (150-450) k/uL MPV 9.2 Neutrophils % 72 % Lymphocytes % 17 % Monocytes % 8 % Eosinophils % 1 % Basophils % 1 % Neutrophils # 2.5 (1.3-7.7) k/uL Lymphocytes # 0.6 L (1.0-4.8) k/uL Monocytes # 0.3 (0-1.0) k/uL Eosinophils # 0.0 (0-0.7) k/uL Basophils # 0.0 (0-0.2) k/uL Poikilocytosis Slight Sodium 140 (137-145) mmol/L Potassium 3.5 (3.5-5.1) mmol/L Chloride 101 (98-107) mmol/L Carbon Dioxide 25 (22-30) mmol/L Anion Gap 14 mmol/L BUN 29 H (7-17) mg/dL Creatinine 1.07 H (0.52-1.04) mg/dL Est GFR (CKD-EPI)AfAm 58 (>60 ml/min/1.73 sqM) Est GFR (CKD-EPI)NonAf 50 (>60 ml/min/1.73 sqM) Glucose 118 H (74-99) mg/dL Calcium 9.1 (8.4-10.2) mg/dL Total Bilirubin 0.7 (0.2-1.3) mg/dL AST 40 H (14-36) U/L ALT 26 (4-34) U/L Alkaline Phosphatase 118 (38-126) U/L Total Protein 6.7 (6.3-8.2) g/dL Albumin 3.9 (3.5-5.0) g/dL Urine Color Urine Appearance (Clear) Urine pH (5.0-8.0) Ur Specific [place] (1.001-1.035) Urine Protein (Negative) Urine Glucose (UA) (Negative) Urine Ketones (Negative) Urine Blood (Negative) Urine Nitrite (Negative) Urine Bilirubin (Negative) Urine Urobilinogen (<2.0) mg/dL Ur Leukocyte Esterase (Negative) Urine RBC (0-5) /hpf Urine WBC (0-5) /hpf Ur Squamous Epith Cells (0-4) /hpf Urine Mucus (None) /hpf Coronavirus (PCR) (Not Detectd) Influenza Type A RNA Not Detected (Not Detectd) Influenza Type B (PCR) Not Detected (Not Detectd) 04/23/22 04/23/22 Range/Units 19:47 20:16 WBC (3.8-10.6) k/uL RBC (3.80-5.40) m/uL Hgb (11.4-16.0) gm/dL Hct (34.0-46.0) % MCV (80.0-100.0) fL MCH (25.0-35.0) pg MCHC (31.0-37.0) g/dL RDW (11.5-15.5) % Plt Count (150-450) k/uL MPV Neutrophils % % Lymphocytes % % Monocytes % % Eosinophils % % Basophils % % Neutrophils # (1.3-7.7) k/uL Lymphocytes # (1.0-4.8) k/uL Monocytes # (0-1.0) k/uL Eosinophils # (0-0.7) k/uL Basophils # (0-0.2) k/uL Poikilocytosis Sodium (137-145) mmol/L Potassium (3.5-5.1) mmol/L Chloride (98-107) mmol/L Carbon Dioxide (22-30) mmol/L Anion Gap mmol/L BUN (7-17) mg/dL Creatinine (0.52-1.04) mg/dL Est GFR (CKD-EPI)AfAm (>60 ml/min/1.73 sqM) Est GFR (CKD-EPI)NonAf (>60 ml/min/1.73 sqM) Glucose (74-99) mg/dL Calcium (8.4-10.2) mg/dL Total Bilirubin (0.2-1.3) mg/dL AST (14-36) U/L ALT (4-34) U/L Alkaline Phosphatase (38-126) U/L Total Protein (6.3-8.2) g/dL Albumin (3.5-5.0) g/dL Urine Color Yellow Urine Appearance Clear (Clear) Urine pH 6.0 (5.0-8.0) Ur Specific [place] 1.026 (1.001-1.035) Urine Protein 1+ H (Negative) Urine Glucose (UA) Negative (Negative) Urine Ketones Trace H (Negative) Urine Blood Negative (Negative) Urine Nitrite Negative (Negative) Urine Bilirubin Negative (Negative) Urine Urobilinogen <2.0 (<2.0) mg/dL Ur Leukocyte Esterase Small H (Negative) Urine RBC 1 (0-5) /hpf Urine WBC 1 (0-5) /hpf Ur Squamous Epith Cells <1 (0-4) /hpf Urine Mucus Rare H (None) /hpf Coronavirus (PCR) Detected A (Not Detectd) Influenza Type A RNA (Not Detectd) Influenza Type B (PCR) (Not Detectd) - EKG Data -: EKG Interpreted by Me EKG Comments: 12-lead Electrocardiogram Interpretation Note EKG was reviewed and interpreted by myself. 12-lead ECG performed at 1929 is interpreted by me as revealing normal sinus rhythm at a rate of 94 beats per minute. [place] is normal. [place] interval is 123 ms, QRS duration is 88 ms, QTc is 3 80 ms.. There were no ST or T wave abnormalities to suggest myocardial ischemia or injury. R wave progression across the precordium was satisfactory. By my interpretation this EKG is non-diagnostic for acute ischemia. Disposition Clinical Impression: COVID-19 virus infection, Dehydration Disposition: HOME SELF-CARE Condition: Fair Instructions (If sedation given, give patient instructions): COVID-19 (Coronavirus Disease 2019) (ED) Additional Instructions: Obtain a pulse oximeter to monitor oxygen levels. Return if persistently lower than 90%. Quarentine until at least 2 days symptom free. Is patient prescribed a controlled substance at d/c from ED?: No Referrals: Ebonie Alexander MD [Primary Care Provider] - 1-2 days Time of Disposition: 20:50
[2022-04-23 19:51] VITALS: BP 169/86; PULSE 97; RESP 16
[2022-04-23 20:14] LABS: Albumin 3.9 g/dL (3.5-5.0); Calcium 9.1 mg/dL (8.4-10.2); Potassium 3.5 mmol/L (3.5-5.1); Total Bilirubin 0.7 mg/dL (0.2-1.3); Total Protein 6.7 g/dL (6.3-8.2)
[2022-04-23 20:19] LABS: Basophils % (A) 1 %; Eosinophils % (A) 1 %; HCT 37.2 % (34.0-46.0); HGB 13.3 gm/dL (11.4-16.0); Lymphocytes # (A) 0.6 k/uL (1.0-4.8); Lymphocytes % (A) 17 %; MCH 31.4 pg (25.0-35.0); MCHC 35.6 g/dL (31.0-37.0); Mean Platelet Volume 9.2; Monocytes # (A) 0.3 k/uL (0-1.0); Monocytes % (A) 8 %; Neutrophils # (A) 2.5 k/uL (1.3-7.7); Neutrophils % (A) 72 %; Platelet Count 101 k/uL (150-450); Poikilocytosis Slight; RBC 4.23 m/uL (3.80-5.40); RDW 13.7 % (11.5-15.5); WBC 3.5 k/uL (3.8-10.6)
--- NOTE | 2022-04-23 20:25 | XR ---
EXAMINATION TYPE: XR chest 2V DATE OF EXAM: 04/23/2022 COMPARISON: 06/17/2020 HISTORY: Cough TECHNIQUE: FINDINGS: Heart and mediastinum are within normal limits. Lungs are clear. Diaphragm is normal. There are chest leads. Bony thorax is intact. IMPRESSION: Normal chest. No change.
[2022-04-23 20:33] LABS: Appearance,Urine Clear (Clear); Bilirubin,Urine Negative (Negative); Blood,Urine Negative (Negative); Color,Urine Yellow; Glucose,Urine (UA) Negative (Negative); Ketones,Urine Trace (Negative); Leukocyte Esterase,Urine Small (Negative); Mucus,Urine Rare /hpf; Nitrite,Urine Negative (Negative); Protein,Urine 1+ (Negative); RBC,Urine 1 /hpf (0-5); Specific Gravity,Urine 1.026 (1.001-1.035); Squamous Epithelial Cell,Urine <1 /hpf (0-4); Urobilinogen,Urine <2.0 mg/dL (<2.0); WBC,Urine 1 /hpf (0-5)
== END 2022-04-23 21:19 | disposition home or self-care (01) ==
LOC: EC 18:05
DX: U07.1 COVID-19 (principal); E86.0 Dehydration; E11.9 Type 2 diabetes mellitus without complications; E78.5 Hyperlipidemia, unspecified; I10 Essential (primary) hypertension; Z79.84 Long term (current) use of oral hypoglycemic drugs; Z79.899 Other long term (current) drug therapy
CPT/HCPCS: 36415; 71046; 80053; 81001; 85025; 87502; 87635; 96360; 99284

== ENCOUNTER → 2022-05-30 | Outpatient (CLI) | payer MEDICARE, BC ==
[2022-05-30 13:46] LABS: INR 0.9 (<1.2)
[2022-05-30 13:47] LABS: Partial Thromboplastin Time 24.9 sec (22.0-30.0); Prothrombin Time 10.2 sec (9.0-12.0)
[2022-05-30 19:14] LABS: HCT 39.1 % (37.2-46.3); HGB 13.3 g/dL (12.0-15.0); MCH 30.3 pg (27.0-32.0); MCV 89.1 fL (80.0-97.0); Mean Platelet Volume 12.2 fL (9.5-12.2); NRBC Per 100 WBC 0 /100 WBCS (0.0-0.0); Platelet Count 139 X 10*3/uL (140-440); RBC 4.39 X 10*6/uL (4.10-5.20); RDW 14.1 % (11.5-14.5); WBC 5.65 X 10*3/uL (4.50-10.00)
[2022-05-30 19:26] LABS: African American GFR (CKD) 55.7 (60.0-200.0); Albumin 4.7 g/dL (3.8-4.9); Albumin/Globulin Ratio 1.68 (1.60-3.17); Anion Gap 11.9 mmol/L (10.00-18.00); BUN/Creat Ratio 18.73 Ratio (12.00-20.00); Blood Urea Nitrogen 20.6 mg/dL (9.0-27.0); Calcium 10.1 mg/dL (8.7-10.3); Carbon Dioxide 25.1 mmol/L (20.0-27.5); Globulin 2.8 g/dL (1.6-3.3); Potassium 4.5 mmol/L (3.5-5.5); Total Bilirubin 0.4 mg/dL (0.30-1.20); Total Protein 7.5 g/dL (6.2-8.2)
[2022-05-30 23:10] LABS: Appearance,Urine Clear (Clear); Bilirubin,Urine Negative (Negative); Blood,Urine Negative (Negative); Color,Urine Yellow (Yellow); Ketones,Urine Negative (Negative); Nitrite,Urine Negative (Negative); PH, Urine 5.5 (5.0-8.0); Specific Gravity,Urine 1.013 (1.001-1.030); Urobilinogen,Urine 0.2 (0.2,1.0)
[2022-05-30 23:16] LABS: Bacteria,Urine None Seen /HPF (None Seen)
== END | disposition home or self-care (01) ==
LOC: LABPAT 12:59
PROVIDERS: ATTEND Orthopaedic Surgery
DX: Z01.812 Encounter for preprocedural laboratory examination (principal)
CPT/HCPCS: 36415; 80053; 81001; 85027; 85610; 85730; 87070

== ENCOUNTER 2022-06-07 09:59 | Day surgery (SDC) | payer MEDICARE, BC ==
[2022-06-06 08:48] VITALS: BMI 27.4
[~2022-06-07 09:59] MED LIST changes: +ACETAMINOPHEN TAB 500 MG TAB PO PRN; +GABAPENTIN 300 MG CAP PO PRN; +LIDOCAINE 1% (10MG/ML) FOR IV START INTRADERMA PRN; +MELOXICAM 7.5 MG TAB PO PRN; +ONDANSETRON 4 MG/2 ML VIAL IVP ONE; +TRANEXAMIC ACID IN NACL,ISO-OS 1,000 MG in SALINE 1 100ML.BAG IVPB PRN; -ceFAZolin 1,000 MG in SODIUM CHLORIDE 0.9% IRRIGATIO 1,000 ML IRRIGATION ONE; -fentaNYL (PF) 50 MCG/ML 2 ML AMP IV PRN
[2022-06-07] MEDS ORDERED: ONDANSETRON 4 MG/2 ML VIAL IVP PRN (10:49)
[2022-06-07] MEDS ORDERED: HYDROmorphone 0.5 MG/0.5 ML SYRINGE IVP PRN ×3 (10:49)
[2022-06-07] MEDS ORDERED: NALOXONE 0.4 MG/ML 1 ML VIAL IV PRN ×2 (10:49→15:16)
[2022-06-07] MEDS: LACTATED RINGERS 1,000 ML IV SCH (10:50)
[2022-06-07] MEDS ORDERED: HYDROcodone/APAP 7.5-325MG 1 EACH TAB PO PRN ×2 (10:51)
[2022-06-07] MEDS ORDERED: DEXAMETHASONE SOD PHOSPHATE 4 MG/ML 1 ML VIAL IVP ONE (10:52)
[2022-06-07 10:53] LABS: Glucose,Whole Blood 131 mg/dL (70-110)
[2022-06-07] MEDS ORDERED: LABETALOL 5 MG/ML VIAL MDV IV ONE (11:05)
[2022-06-07] MEDS ORDERED: ROCURONIUM 10 MG/ML (5 ML VIAL) IV ONE (11:06)
[2022-06-07] MEDS ORDERED: fentaNYL (PF) 50 MCG/ML 2 ML AMP ONE (11:06)
[2022-06-07] MEDS ORDERED: LIDOCAINE 2% INJ 20 MG/ML (2 ML VIAL) ONE (11:06)
[2022-06-07] MEDS ORDERED: PROPOFOL 10 MG/ML 20 ML VIAL IV ONE (11:06)
[2022-06-07] MEDS ORDERED: TRANEXAMIC ACID IN NACL,ISO-OS 1,000 MG/100 ML BAG ONE (11:06)
[2022-06-07] MEDS ORDERED: GLYCOPYRROLATE 0.2 MG/ML 2 ML VIAL ONE (11:06)
[2022-06-07] MEDS ORDERED: MIDAZOLAM 2 MG/2 ML VIAL ONE (11:06)
[2022-06-07] MEDS ORDERED: NEOSTIGMINE 1 MG/ML 10 ML VIAL ONE (11:06)
[2022-06-07] MEDS ORDERED: SUCCINYLCHOLINE CHLORIDE 200 MG/10 ML VIAL IV ONE (11:06)
[2022-06-07] MEDS ORDERED: ceFAZolin 1,000 MG in SODIUM CHLORIDE 0.9% 1,000 ML IRRIGATION ONE (11:13)
[2022-06-07] MEDS ORDERED: ROPIVACAINE 5 MG/ML 30 ML VIAL MISCELLANE ONE (11:32)
--- NOTE | 2022-06-07 12:15 | P.OP ---
Date of Procedure: 06/07/22 Preoperative Diagnosis: Severe osteoarthritis right hip Postoperative Diagnosis: Severe osteoarthritis right hip Procedure(s) Performed: Right total arthroplasty with a direct anterior approach Implants: [employer] Polarstem standard size 2 collar [employer] R3, 3 hole hemispherical acetabular shell, 50 mm [employer] Reflection 6.5 mm cancellus screw, 20 mm 2 [employer] R3, XLPE 20 acetabular liner [employer] Oxinium femoral head 32 m, +0 All components were press-fit. The articulation is Oxinium on polyethylene. Anesthesia: GETA Surgeon: John Méndez Preschool Lead Teacher #1: Paula Strauss Estimated Blood Loss (ml): 250 Pathology: other (Femoral head) Condition: stable Disposition: PACU Indications for Procedure: After failure of conservative treatment we discussed the surgical and nonsurgi natalio treatment options at length. Patient wishes to proceed with a total hip arthroplasty with a direct anterior approach. Complications specific to this procedure were discussed at length, including but not limited to infection, leg length discrepancy, dislocation, nerve injury, and fracture. Covid-19 was also discussed at length with the patient, and they are aware of the current policies and procedures. The patient was given the option of delaying surgery, but they elect to proceed knowing these risks. Patient is aware of all these complications and informed consent was obtained Operative Findings: The operative findings are consistent with severe osteoarthritis of the right hip Description of Procedure: Patient was seen and evaluated in the preoperative area and the consent was reviewed. The operative site was marked with a skin marker. The patient was then brought to the operating room and given preoperative antibiotics intravenously. 1 g of Tranexamic acid was also given intravenously. A spinal anesthetic was administered by the anesthesia department. The patient was then placed on the [place] table with the bony prominences well-padded. The hip area was then prepped with a ChloraPrep solution and draped in the usual sterile fashion. A universal timeout was then performed, which confirmed the patient's name, surgical site, ALLERGIES, and procedure being performed on the consent. Next the incision site was located at 1 cm distal and 2 cm lateral to the anterior superior iliac spine. The skin and subcutaneous tissues were sharply incised. Incision was carefully dissected down to the fascia overlying the tensor fascia lenore muscle. This fascia was then incised in line with the incision. Care was taken to stay laterally in order to avoid injuring the lateral femoral cutaneous nerve. Next, using blunt finger dissection, the tensor fascia lenore muscle was dissected off its investing fascia. The muscle was then carefully retracted laterally with a cobra retractor over the lateral neck of the femur. Next, the circumflex vessels were identified and cauterized using the AquaMantis device. The anterior hip capsule was then exposed. The capsule was then opened and an inverted T fashion. Cobra retractors were then placed intracapsularly. The retractors were maintained intracapsular throughout the procedure. The proximal femur was then visualized. Fluoroscopic x-rays were then taken in order to evaluate the preoperative leg lengths. A small amount of traction was placed on the leg. The femoral neck was then osteotomized at the appropriate level above the lesser trochanter. A small wedge of bone was then removed from the remaining femoral head. Next, using a corkscrew the femoral head was removed from the acetabulum. On gross visual inspection, the femoral head had complete loss of articular cartilage and multiple periarticular osteophytes. The femoral head was then measured. Attention was then turned to the acetabulum. The acetabulum was exposed and any remaining labrum was excised. Sequential reaming of the acetabulum was performed using fluoroscopic guidance until there was a good bed of bleeding cancellus bone. When the appropriate size was reached, a trial was then placed. The position and fit of the trial was checked with fluoroscopy. The trial was then removed. Then, using fluoroscopic guidance, the final implant was impacted at 20 of anteversion and 40 of abduction, and fully seated in the acetabulum. 2 screws were then placed in the acetabulum. Again fluoroscopy was used to check position of the screws. Next, the liner was then impacted, with a 20 elevated liner located in the anterior superior quadrant. Component locking was confirmed. Attention was then directed to the femur. With the aid of the [place] table, the femur was externally rotated to approximately 130, extended, and adducted under the opposite leg. A side hook was then placed under the proximal femur, and the side hook elevator was used to elevate the proximal femur while releasing the capsule. Retractors were then placed. A capsular release was performed, as well as a release of the conjoined tendon, which afforded excellent visualization of the proximal femur. Next, a box osteotome was used to lateralize the proximal femur. A rubber process hand was then used to locate the femoral canal. Sequential broaching was then performed with appropriate size which afforded excellent fixation in the proximal femur. A trial was then placed with appropriate head and neck, and the hip was gently reduced with the aid of the [place] table. Fluoroscopy was then used to check position of the components, as well as to ensure equal leg lengths. The hip was then gently d islocated and the trials were then removed. Final implants were then impacted and the hip was again reduced. Final fluoroscopic x-rays confirmed that the components were in anatomic position, as well as equal leg lengths. The hip was also taken through range of motion, and found to be stable. The hip was then copiously irrigated with antibiotic solution with pulsatile lavage. The hip was then irrigated with Irrisept solution. The soft tissues were then injected with a ropivacaine solution. A second dose of 1 g of Tranexamic acid was also given intravenously. The fascia was then closed with 2-0 strata fix suture. The subcutaneous tissue was closed with 3-0 Vicryl. The subcuticular tissue was closed with 3-0 strata fix suture. The skin was then closed with Exofin skin glue. After the glue and dried, and Optifoam silver impregnated dressing was applied. The patient was then transferred to the recovery room in stable condition. The certified nursing assistant instructor FRANSISCO Villareal was required due to the complexity of surgery, and the need for skilled travel assistant for positioning, draping, exposure, retraction, and closure of the wound.
--- NOTE | 2022-06-07 12:29 | FL ---
EXAMINATION TYPE: FL guidance operating room, XR Hip Limited RT DATE OF EXAM: 06/07/2022 CLINICAL HISTORY: Right hip pain and osteoarthritis. TECHNIQUE: Fluoroscopy. Intraoperative limited views left hip. COMPARISON: None. FINDINGS: Fluoroscopic guidance was provided during total left hip replacement procedure performed bora Méndez. A total of 49 seconds of fluoroscopic time was utilized during the procedure and 2 s pot intraoperative images are acquired. Images acquired show metallic hardware from total right hip arthroplasty satisfactory in position on frontal projection . IMPRESSION: As Above.
[2022-06-07] MEDS: HYDROmorphone 0.5 MG/0.5 ML SYRINGE IVP PRN ×2 (12:44→13:00)
--- NOTE | 2022-06-07 12:56 | XR ---
EXAMINATION TYPE: XR Hip Limited RT DATE OF EXAM: 06/07/2022 COMPARISON: NONE HISTORY: Postop TECHNIQUE: One view submitted. FINDINGS: There is postsurgical change in near anatomic alignment. There is soft tissue edema and emphysema. IMPRESSION: 1. Postoperative change. Appears in near-anatomic alignment.
[2022-06-07] MEDS ORDERED: LACTATED RINGERS 1,000 ML IV ONE (13:07)
[2022-06-07] MEDS ORDERED: hydrALAZINE HCL 20 MG/ML 1 ML VIAL IVP ONE (14:02)
[2022-06-07] MEDS ORDERED: METOCLOPRAMIDE 5 MG/ML 2 ML VIAL IVP ONE ×2 (14:49)
[2022-06-07 15:03] LABS: Glucose,Whole Blood 205 mg/dL (70-110)
[2022-06-07] MEDS ORDERED: MAGNESIUM HYDROXIDE 2,400 MG/10 ML CUP PO PRN (15:16)
[2022-06-07 16:56] LABS: Glucose,Whole Blood 198 mg/dL (70-110)
[2022-06-07] MEDS ORDERED: IBUPROFEN 800 MG TAB PO PRN (17:31)
[2022-06-07] MEDS: SODIUM CHLORIDE 0.9% 1,000 ML IV SCH (17:56)
[2022-06-07] MEDS: ASCORBIC ACID 500 MG TAB PO SCH (20:09)
[2022-06-07] MEDS: BISOPROLOL-HCTZ 2.5-6.25 MG 1 EACH TAB PO SCH (20:09)
[2022-06-07] MEDS: CHOLECALCIFEROL 25 MCG (1000 IU) TABLET PO SCH (20:09)
[2022-06-07] MEDS: ASPIRIN 325 MG TAB PO SCH (20:09)
[2022-06-07] MEDS ORDERED: SENNOSIDES-DOCUSATE SODIUM 1 EACH TAB PO SCH (21:00)
[2022-06-08] MEDS: SODIUM CHLORIDE 0.9% 1,000 ML IV SCH (02:46)
[2022-06-08] MEDS: ASPIRIN 325 MG TAB PO SCH (07:18)
[2022-06-08] MEDS: CHOLECALCIFEROL 25 MCG (1000 IU) TABLET PO SCH (07:18)
[2022-06-08] MEDS: ASCORBIC ACID 500 MG TAB PO SCH (07:18)
[2022-06-08] MEDS: LACTATED RINGERS 1,000 ML IV SCH (07:22)
[2022-06-08] MEDS ORDERED: metFORMIN 500 MG TAB PO SCH (07:30)
[2022-06-08 07:37] VITALS: BP 155/74; PULSE 81; RESP 16; TEMP 97
[2022-06-08] MEDS: BISOPROLOL-HCTZ 2.5-6.25 MG 1 EACH TAB PO SCH (07:49)
[2022-06-08] MEDS ORDERED: lisinopriL 20 MG TAB PO SCH (09:00)
[2022-06-08] MEDS ORDERED: ZINC SULFATE 220 MG CAP PO SCH (09:00)
[2022-06-08] MEDS ORDERED: DILTIAZEM CD 300 MG CAP.ER.24H PO SCH (09:00)
--- NOTE | 2022-06-08 09:59 | P.CONS ---
History of Present Illness - Reason for Consult Consult date: 06/08/22 Medical management Requesting physician: John Glez - Chief Complaint OA of the right hip - History of Present Illness This is a 76-year-old female patient of Dr. Alexander who presented for an elective right hip arthroplasty with Dr. glez on 06/07/2022. Patient has a past medical history of breast cancer 6 years ago with radiation, diabetes mellitus, GERD, hyperlipidemia, hypertension. Patient is currently postop day 1. Patient reports minimal nausea. Patient reports adequate pain control. Patient denies chest pain or shortness breath. Patient denies nausea vomiting or diarrhea. Patient denies any urinary burning or frequency. Current vital signs temp 97.0, heart rate 81, respiratory rate 16, blood pressure 155/74 with a pulse ox of 93% on room air. Patient is anticipating discharge home today. Patient reports she lives with and has children that will assist. Review of Systems Please refer to HPI otherwise unremarkable Past Medical History Past Medical History: Cancer, Diabetes Mellitus, GERD/Reflux, Hyperlipidemia, Hypertension Additional Past Medical History / Comment(s): Hx right breast cancer 6 yrs ago, had radiation. History of Any Multi-Drug Resistant Organisms: None Reported Past Surgical History: Back Surgery, Breast Surgery Additional Past Surgical History / Comment(s): Right breast biopsy. Catartacts removed. Past Anesthesia/Blood Transfusion Reactions: No Reported Reaction Past Psychological History: No Psychological Hx Reported Smoking Status: Never smoker Past Alcohol Use History: None Reported Past Drug Use History: None Reported - Past Family History Daughter(s) Family Medical History: Cancer Additional Family Medical History / Comment(s): Colon cancer. Medications and Allergies Home Medications Medication Instructions Recorded Confirmed Type metFORMIN HCL [Glucophage Xr] 1,500 mg PO W/SUPPER 07/07/14 06/06/22 History Ibuprofen 800 mg PO TID PRN 08/06/18 06/06/22 History lisinopriL 40 mg PO QAM 08/06/18 06/06/22 History Ascorbic Acid [Vitamin C] 1,000 mg PO DAILY 06/06/22 06/06/22 History Brain Support 1 tab PO DAILY 06/06/22 06/06/22 History Cholecalciferol [Vitamin D3 (25 25 mcg PO DAILY 06/06/22 06/06/22 History Mcg = 1000 Iu)] Diltiazem Cd [Cardizem CD] 300 mg PO QAM 06/06/22 06/06/22 History Zinc Gluconate [Zinc] 50 mg PO DAILY 06/06/22 06/06/22 History Aspirin 325 mg PO BID #60 tab 06/07/22 Rx Bisoprolol-Hctz 2.5-6.25 mg [[place] 1 tab PO DAILY 06/07/22 06/07/22 History 2.5-6.25 MG] HYDROcodone/APAP 7.5-325MG [[place] 1 - 2 tab PO Q6H PRN #32 tab 06/07/22 Rx 7.5-325] Ondansetron Odt [Zofran Odt] 1 tab PO Q8HR PRN #10 tab 06/07/22 Rx Sennosides [Senokot] 2 tab PO DAILY PRN #60 tablet 06/07/22 Rx Allergies Allergy/AdvReac Type Severity Reaction Status Date / Time No Known Allergies Allergy Verified 06/06/22 08:27 Physical Exam Vitals: Vital Signs Temp Pulse Resp BP Pulse Ox 06/08/22 07:36 97.0 F L 81 16 155/74 93 L 06/08/22 02:00 98.2 F 92 20 147/80 94 L 06/07/22 17:58 97.7 F 91 18 171/78 95 06/07/22 15:27 97.4 F L 82 18 175/81 96 06/07/22 14:55 81 16 171/89 98 06/07/22 14:40 74 16 175/84 97 06/07/22 14:26 77 16 170/93 99 06/07/22 14:11 175/85 06/07/22 14:05 70 16 190/87 99 06/07/22 13:50 76 16 184/87 99 06/07/22 13:35 70 16 186/87 99 06/07/22 13:20 70 16 172/84 94 L 06/07/22 13:05 66 16 142/79 97 06/07/22 12:49 62 16 138/65 99 06/07/22 12:34 96.9 F L 64 16 155/79 98 06/07/22 11:00 203/106 06/07/22 10:34 98 F 104 H 20 224/110 96 Intake and Output 10/12/2406/08/22 06/08/22 22:59 06:59 14:59 Other: # Voids 1 2 Weight 74.3 kg Head normocephalic Neck supple Lungs clear to auscultation bilaterally no wheezing or crackles Heart regular rate and rhythm S1-S2, no rub or gallop Abdomen is soft nontender nondistended positive bowel sounds no hepatosplenomegaly Extremities no edema. Right hip dressing clean dry and intact Neuro alert and orientated to 3 Results Labs: Abnormal Lab Results - Last 24 Hours (Table) 06/07/22 06/07/22 06/07/22 Range/Units 10:38 15:02 16:55 POC Glucose (mg/dL) 131 H 205 H 198 H (70-110) mg/dL Assessment and Plan Assessment: 1. Right hip osteoarthritis status post total right hip arthroplasty on 06/07/[address] Glez 2. History of diabetes mellitus. 3. History of breast cancer 6 years ago with radiation 4. History of GERD 5. History of hyperlipidemia 6. history of essential hypertension Patient currently maintained on aspirin 325 twice a day for DVT prophylaxis per surgical services Lab work currently pending Anticipate discharge next 24-48 hours Thank you for this consultation we'll continue to follow patient closely throughout stay Time with Patient: Greater than 30 (Greater than 60% of the total time spent in counseling and coordination of care)
[2022-06-08 10:43] LABS: Basophils # (A) 0.02 X 10*3/uL (0.00-0.10); Basophils % (A) 0.2 %; Eosinophils # (A) 0 X 10*3/uL (0.04-0.35); Eosinophils % (A) 0 %; HGB 11.5 g/dL (12.0-15.0); Immature Grans, Automated 0.3 %; Lymphocytes # (A) 1.08 X 10*3/uL (0.90-5.00); Lymphocytes % (A) 9.3 %; MCH 29.9 pg (27.0-32.0); MCHC 33.8 g/dL (32.0-37.0); MCV 88.3 fL (80.0-97.0); Mean Platelet Volume 12.2 fL (9.5-12.2); Monocytes # (A) 1.17 X 10*3/uL (0.20-1.00); Monocytes % (A) 10.1 %; NRBC Per 100 WBC 0 /100 WBCS (0.0-0.0); Neutrophils # (A) 9.28 X 10*3/uL (1.80-7.70); Neutrophils % (A) 80.1 %; Platelet Count 117 X 10*3/uL (140-440); RBC 3.85 X 10*6/uL (4.10-5.20); RDW 13.8 % (11.5-14.5); WBC 11.59 X 10*3/uL (4.50-10.00)
[2022-06-08 11:20] LABS: African American GFR (CKD) 53.3 (60.0-200.0); Albumin/Globulin Ratio 1.84 (1.60-3.17); Anion Gap 11.8 mmol/L (10.00-18.00); BUN/Creat Ratio 21.84 Ratio (12.00-20.00); Blood Urea Nitrogen 24.9 mg/dL (9.0-27.0); Calcium 9.6 mg/dL (8.7-10.3); Carbon Dioxide 23.9 mmol/L (20.0-27.5); Globulin 2.2 g/dL (1.6-3.3); Total Bilirubin 0.4 mg/dL (0.30-1.20); Total Protein 6.2 g/dL (6.2-8.2)
--- NOTE | 2022-06-08 13:31 | P.DS ---
Providers Expected date of discharge: 06/08/22 Attending physician: John Méndez Consults: 06/07/22 15:16 Consult Physician Routine Consulting Provider: Ebonie Alexander Consult Reason/Comments: medical management Do you want consulting provider notified?: Yes Primary care physician: Ebonie Alexander [place] [facility] Course: This is a 76-year-old female who was last seen in our office with complaint of continued right hip pain. The patient has a known history of degenerative arthritis of the right hip and presents to discuss surgical options. After discussion and consideration the patient elects to proceed with total right hip arthroplasty. she is seen preoperatively by his family physician and cleared for surgery. The patient is admitted to [facility] for direct anterior total right hip arthroplasty. The procedure is performed without complication or sequelae. The patient is doing well postoperatively. Vital signs and postoperative labs are stable. Patient is examined bedside the day of discharge. She is ambulating with a walker with minimal assistance. Her pain is well-controlled. She denies chest pain, shortness of breath, nausea, vomiting currently.She did vomit this morning but this has resolved. On examination, she is sitting up in bed in no apparent distress. She is alert and orientated x3. On inspection of the right hip, there is no bleeding or drainage to the dressing. Motor and sensory function intact of the right lower extremity. RLE warm and well perfused. Calf nontender. The patient is discharged to home with home health care today in good condition. Please see discharge orders. Please refer to the med rec for accurate list of medications. Plan - Discharge Summary Discharge Rx Participant: Yes New Discharge Prescriptions: New HYDROcodone/APAP 7.5-325MG [[place] 7.5-325] 1 - 2 tab PO Q6H PRN #32 tab PRN Reason: Pain Sennosides [Senokot] 2 tab PO DAILY PRN #60 tablet PRN Reason: Constipation Aspirin 325 mg PO BID #60 tab Ondansetron Odt [Zofran Odt] 1 tab PO Q8HR PRN #10 tab PRN Reason: Nausea No Action metFORMIN HCL [Glucophage Xr] 1,500 mg PO W/SUPPER lisinopriL 40 mg PO QAM Ibuprofen 800 mg PO TID PRN PRN Reason: Pain Diltiazem Cd [Cardizem CD] 300 mg PO QAM Cholecalciferol [Vitamin D3 (25 Mcg = 1000 Iu)] 25 mcg PO DAILY Brain Support 1 tab PO DAILY Ascorbic Acid [Vitamin C] 1,000 mg PO DAILY Zinc Gluconate [Zinc] 50 mg PO DAILY Bisoprolol-Hctz 2.5-6.25 mg [Ziac 2.5-6.25 MG] 1 tab PO DAILY Discharge Medication List metFORMIN HCL [Glucophage Xr] 1,500 mg PO W/SUPPER 07/07/14 [History] Ibuprofen 800 mg PO TID PRN 08/06/18 [History] lisinopriL 40 mg PO QAM 08/06/18 [History] Ascorbic Acid [Vitamin C] 1,000 mg PO DAILY 06/06/22 [History] Brain Support 1 tab PO DAILY 06/06/22 [History] Cholecalciferol [Vitamin D3 (25 Mcg = 1000 Iu)] 25 mcg PO DAILY 06/06/22 [History] Diltiazem Cd [Cardizem CD] 300 mg PO QAM 06/06/22 [History] Zinc Gluconate [Zinc] 50 mg PO DAILY 06/06/22 [History] Aspirin 325 mg PO BID #60 tab 06/07/22 [Rx] Bisoprolol-Hctz 2.5-6.25 mg [Ziac 2.5-6.25 MG] 1 tab PO DAILY 06/07/22 [History] HYDROcodone/APAP 7.5-325MG [[place] 7.5-325] 1 - 2 tab PO Q6H PRN #32 tab 06/07/22 [Rx] Ondansetron Odt [Zofran Odt] 1 tab PO Q8HR PRN #10 tab 06/07/22 [Rx] Sennosides [Senokot] 2 tab PO DAILY PRN #60 tablet 06/07/22 [Rx] Follow up Appointment(s)/Referral(s): [facility] - 1-2 Days ([facility] will you to set up your in home physical therapy visits. ) John Méndez DO [Doctor of Osteopathic Medicine] - 2 Weeks Patient Instructions/Handouts: Total Hip Replacement (DC) Activity/Diet/Wound Care/Special Instructions: Weightbearing as tolerated with walker. Leave dressing intact. Dressing may be removed by home care nurse or by patient in 7 days. Then change dressing twice daily until follow up. May shower with initial dressing intact and after removal. If dressing become saturated, please remove. Please take aspirin 325mg twice daily for 30 days to prevent blood clots. Recommend use of compression stockings daily until follow up to help prevent swelling and blood clots. May remove at night before sleeping. Please follow-up with [facility] in 2 weeks and call with any questions or concerns, . Discharge Disposition: HOME WITH HOME HEALTH SERVICES
== END 2022-06-08 11:56 | disposition home health service (06) ==
LOC: OR 09:59 → 4SSUR 12:38 → OR 06-08 11:56
PROVIDERS: ATTEND Orthopaedic Surgery
DX: M16.11 Unilateral primary osteoarthritis, right hip (principal); M25.751 Osteophyte, right hip; I10 Essential (primary) hypertension; E11.9 Type 2 diabetes mellitus without complications; Z97.3 Presence of spectacles and contact lenses; Z79.84 Long term (current) use of oral hypoglycemic drugs; Z85.3 Personal history of malignant neoplasm of breast; Z79.899 Other long term (current) drug therapy
CPT/HCPCS: 27130; 97161; 97535; 97165; 86900; 86901; 80053; 85025; 86850; 73501; C1776; J2250; J0330; J0360; J1100; J2710; J2765; J0690 ×2; J2405; J3010; J2795; J2704; J1170; J2001; 88305; 88311

== ENCOUNTER → 2023-10-31 | Outpatient (CLI) | payer MEDICARE, BC ==
--- NOTE | 2023-11-02 15:09 | MM ---
Reason for Exam: Screening (asymptomatic). Last mammogram was performed 2 year(s) and 7 month(s) ago. Patient History: Menarche at age 11. First Full-Term at age 18. Hysterectomy at age 29. Postmenopausal. Breast cancer, right, age 70. Lumpectomy on the Right side. 05/10/2016, Malignant Core Biopsy on the right side. Radiation Therapy, right. Prior Study Comparison: 02/08/2018 Bilateral Diagnostic Mammogram, [facility]. 02/12/2019 Bilateral Diagnostic Mammogram, [facility]. 03/17/2021 Bilateral Diagnostic Mammogram, [facility]. Tissue Density: The breast tissue is heterogeneously dense. This may lower the sensitivity of mammography. Findings: Analyzed By CAD. Right breast calcifications and surgical clips. There is no suspicious group of microcalcifications or new suspicious mass. Overall Assessment: Benign, BI-RAD 2 Management: Screening Mammogram of both breasts in [address] [facility] will attempt to contact patient to return for supplemental views and ultrasound if indicated. Patient should continue monthly self-breast exams. A clinical breast exam by your physician is recommended on an annual basis. This exam should not preclude additional follow-up of suspicious palpable abnormalities. Note on Jania scores and lifetime risk: 1. A Jania score greater than 3% is considered moderate risk. If this is the case, consider specialist referral to assess eligibility for a risk reducing agent. 2. If overall lifetime risk for the development of breast cancer is 20% or higher, the patient may qualify for future screening with alternating mammogram and breast MRI. Electronically signed and approved by: Trino Aguayo DO
== END | disposition home or self-care (01) ==
LOC: RADMAMWWP 12:46
PROVIDERS: ATTEND Family Medicine
DX: Z12.31 Encounter for screening mammogram for malignant neoplasm of breast (principal); Z78.0 Asymptomatic menopausal state
CPT/HCPCS: 77063; 77067